=== PATIENT | female | born 1965 | race Caucasian/White ===

== ENCOUNTER 2023-11-20 09:00 | Outpatient (OUT) | payer OTHER, SELFPAY ==
--- NOTE | 2023-11-20 09:06 | ECG_ITS ---
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
--- NOTE | 2023-11-20 09:39 | P.GSHP_ITS ---
History of Present Illness History of Present Illness Chief complaint: left kidney stone Narrative: Patient presents for preadmission testing. The patient reports a history of kidney stones. She states she had a one year follow-up with Dr. Schmid and a kidney stone was found. She states she does have intermittent back pain which is not new for her. She denies any urinary complaints. She states she does have dyspnea with exertion. She also admits that she's had some congestion and a cough recently which she believes is due to her sinuses. She denies fever, wheezing, shortness of breath, or any other complaints. Review of Systems ROS Narrative REVIEW OF SYSTEMS: Negative except as stated in HPI, ten or more systems reviewed. Constitutional: No fever , chills, weakness ENT: No sore throat or epistaxis Cardiovascular: No edema, chest pain, or palpitations; Admits to dyspnea on exertion Respiratory: No shortness of breath, cough, or wheezing Musculoskeletal: No joint pain or swelling Gastrointestinal: No abdominal pain, constipation, diarrhea, or vomiting Genitourinary: No dysuria or hematuria Neurological: No numbness, tingling, weakness, or headache Psychiatric: No mood changes [facility] Medical History (Updated 11/20/23 @ 09:49 by Sanna Campuzano NP) URI (upper respiratory infection) ?J06.9 - Acute upper respiratory infection, unspecified (ICD-10) NAFLD (nonalcoholic fatty liver disease) ?K76.0 - Fatty (change of) liver, not elsewhere classified (ICD-10) Anxiety ?F41.9 - Anxiety disorder, unspecified (ICD-10) Back pain ?M54.9 - Dorsalgia, unspecified (ICD-10) Arthritis ?M19.90 - Unspecified osteoarthritis, unspecified site (ICD-10) COVID-19 ?U07.1 - COVID-19 (ICD-10) Vertigo ?R42 - Dizziness and giddiness (ICD-10) Migraine ?G43.909 - Migraine, unspecified, not intractable, without status migrainosus (ICD-10) Seizures ?R56.9 - Unspecified convulsions (ICD-10) Kidney stones ?N20.0 - Calculus of kidney (ICD-10) Gallstone ?K80.20 - Calculus of gallbladder without cholecystitis without obstruction (ICD-10) Constipation ?K59.00 - Constipation, unspecified (ICD-10) Dyspnea on exertion ?R06.09 - Other forms of dyspnea (ICD-10) Diabetes ?E11.9 - Type 2 diabetes mellitus without complications (ICD-10) Menopause ?Z78.0 - Asymptomatic menopausal state (ICD-10) Surgical History (Updated 11/20/23 @ 09:26 by Sanna Campuzano NP) Hx of tonsillectomy ?Z90.89 - Acquired absence of other organs (ICD-10) History of surgical removal of skin lesion ?Z98.890 - Other specified postprocedural states (ICD-10) ?Z87.2 - Personal history of diseases of the skin and subcutaneous tissue (ICD-10) H/O foot surgery ?Z98.890 - Other specified postprocedural states (ICD-10) Family History (Updated 11/20/23 @ 09:37 by Sanna Campuzano NP) Other Family history of cancer Family history of diabetes mellitus Family history of hypertension Heart disease Social History (Updated 11/20/23 @ 09:25 by Sanna Campuzano NP) Within the past year, how often did you have a drink containing alcohol: harish hly or less Smoking status: Never smoker Non-prescribed substance use: denies use 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 Highest level of school completed/degree received: high school graduate Meds Home Medications and Allergies Home Medications Medication Instructions Recorded Confirmed Type dulaglutide 4.5 mg/0.5 mL 4.5 mg subcut QWEEK 11/20/23 11/20/23 History subcutaneous pen injector (Trulicity) meloxicam 15 mg tablet 15 mg PO DAILY 11/20/23 11/20/23 History metformin 850 mg tablet 850 mg PO DAILY 11/20/23 11/20/23 History Allergies Allergy/AdvReac Type Severity Reaction Status Date / Time latex Allergy Rash Verified 11/20/23 09:20 Penicillins Allergy Rash Verified 11/20/23 09:20 phenobarbital Allergy Rash Verified 11/20/23 09:20 milk AdvReac Verified 11/20/23 09:20 Exam Narrative Exam Narrative: Constitutional: Awake, alert, comfortable, well-appearing, nontoxic, interactive, vital signs as charted Head: Normocephalic, atraumatic Neck: Supple, normal appearance, normal range of motion, no meningeal signs, no lymphadenopathy Respiratory: No respiratory distress, breath sounds clear Cardiovascular: Regular rate and rhythm, strong and regular heart tones Abdomen: Nontender, normal bowel sounds, soft, no CVA tenderness Musculoskeletal: Normal gait, no swelling or edema Skin: No rashes or induration, no lesions, only visible skin inspected Neuro: No neurological deficits, normal sensation Psychiatric: Oriented ?3, anxious affect Assessment and Plan Assessment and Plan (1) Kidney stones: Plan Left ESWL scheduled with Dr. Schmid 12/06/2023.
[2023-11-20 10:09] LABS: Basophils Percent Auto 0.5 % (0.2-2.0); Eosinophils Absolute Auto 0.1 10^3/uL (0.0-0.7); Eosinophils Percent Auto 1.7 % (0.9-7.0); Hematocrit 38.6 % (36.0-48.0); Hemoglobin 12.1 g/dL (12.0-16.0); Immature Granulocytes Abs Auto 0.02 10^3/uL (0.00-0.03); Immature Granulocytes Pct Auto 0.3 % (0.0-0.5); Lymphocytes Absolute Auto 3.1 10^3/uL (1.2-3.8); Lymphocytes Percent Auto 41.1 % (20.5-60.0); Mean Corpuscular HGB Conc 31.3 g/dL (29.9-35.2); Mean Corpuscular Hemoglobin 30.3 pg (26.7-34.0); Mean Corpuscular Volume 96.5 fL (81.0-99.0); Mean Platelet Volume 9.8 fL (9.5-13.5); Monocytes Absolute Auto 0.5 10^3/uL (0.3-0.8); Monocytes Percent Auto 6.1 % (1.7-12.0); Neutrophils Absolute Auto 3.8 10^3/uL (1.4-6.5); Neutrophils Percent Auto 50.3 % (43.0-75.0); Platelet Count 228 10^3/uL (150-450); Red Cell Distribution Width 13.8 % (11.0-15.0); White Blood Count 7.5 10^3/uL (4.0-11.0)
[2023-11-20 10:41] LABS: INR 0.93; Partial Thromboplastin Time 30.5 sec (22.3-36.2); Prothrombin Time 9.9 sec (9.0-11.6)
[2023-11-20 11:29] LABS: Anion Gap 8.1; BUN Creatinine Ratio 13.6; Calcium 8.6 mg/dL (8.5-10.1); Carbon Dioxide 30.6 mmol/L (21.0-32.0); Chloride 109 mmol/L (98-107); Estimated GFR (African America >60 (>=60); Estimated GFR (Non-African Ame >60 (>=60); Glucose 93 mg/dL (74-106); Potassium 3.7 mmol/L (3.5-5.1); Sodium 144 mmol/L (136-145)
[2023-11-20 15:29] LABS: SARS-CoV-2 NAA NOT DETECTED (NOT DETECTE)
== END 2023-11-20 09:01 | disposition home or self-care (01) ==
PROVIDERS: PCP Family Medicine; Visit Provider Urology
DX: Z01.810 Encounter for preprocedural cardiovascular examination (principal); Z01.812 Encounter for preprocedural laboratory examination; Z01.818 Encounter for other preprocedural examination; Z20.822 Contact with and (suspected) exposure to COVID-19
CPT/HCPCS: 36415; 80048; 85025; 85610; 85730; 87635; 87811; 93005; G0463

== ENCOUNTER 2023-12-06 07:18 | Day surgery (SDC) | payer OTHER, SELFPAY ==
[2023-11-20 09:37] VITALS: BP 122/73; PULSE 57; RESP 22; TEMP 36.2; O2SAT 96; BMI 39.8
[2023-12-06] VITALS (12 sets, daily range): BP systolic 93–127; BP diastolic 58–83; PULSE 51–72; RESP 12–18; TEMP 36.2; O2SAT 89–98; BMI 38.6
--- OUTSIDE RECORDS SUMMARY | 2023-12-06 07:20 | XMS_ITS | CCD ---
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 Name Role Phone Raulito Bullock Primary Care Physician [phone] Kayley Herrera Unavailable Unavailable RAULITO BULLOCK Attending Unavailable JOHN GONGORA Attending Unavailable RAULITO BULLOCK Attending Unavailable Raulito Bullock MD Unavailable [phone] Raulito Bullock MD Primary Care Provider Chanelle Wilson Attending Unavailable Raulito Bullock Admitting Unavailable Raulito Bullock Consulting Unavailable Raulito Bullock Attending Unavailable REFERRAL, SELF Referring Unavailable MD Raulito Bullock Consulting Unavailable Fatmata PAZ Consulting Unavailable Raulito Bullock Consulting Unavailable Raulito Bullock Consulting Unavailable Raulito Bullock Consulting Unavailable Raulito Bullock Consulting Unavailable Raulito Bullock Consulting Unavailable Raulito Bullock Consulting Unavailable Raulito Bullock Consulting Unavailable Nasir SCHMID Admitting Unavailable Nasir SCHMID Attending Unavailable Nasir SCHMID Admitting Unavailable Nasir SCHMID Attending Unavailable Alon High Attending Unavailable Nasir SCHMID Attending Unavailable Allergies Allergy Classification Reported Allergen(s) Allergy Type Date of Onset Reaction(s) Facility (11 sources) Latex; Translations: [Latex] Drug allergy 3 Unknown (qualifier value) [facility] (10 sources) Penicillins; Translations: [penicillins] Drug allergy Eruption of skin (disorder) [facility] (11 sources) PHENobarbital; Translations: [phenobarbital] Drug Allergy 3 Eruption of skin (disorder) [facility] (9 sources) powder in gloves 1 Allergy to substance rash on hands [facility] Comment on above: denied latex allergy - just powder (10 sources) Milk Products; Translations: [Milk Products] Food allergy Diarrhea (finding) [facility] (1 source) Penicillin G Drug Allergy 3 [facility] (1 source) powder in gloves; Translations: [powder in gloves] Propensity to adverse reactions (disorder) [facility] Repository Medications Current Medications Medication Drug Class(es) Dates Sig (Normalized) Sig (Original) acetaminophen 325 mg / HYDROcodone bitartrate 5 mg oral tablet (1 source) Opioid Agonist Start: 09-07-2023 End: 09-10-2023 take 1 tablet by mouth every six hours for pain [place] 325 mg-5 mg oral tablet 1 tab(s), Oral, q6hr for pain for 3 day(s), 12 tab(s), Refill(s) 0, [facility], 170.2, cm, 09/07/23 17:08:00 EST, Height/Length Dosing, 119.1, kg, 09/07/23 17:08:00 EST, Weight Dosing Start Date: 09/07/23 Stop Date: 09/10/23 Status: Ordered Percocet (8 sources) Opioid Agonist Start: 11-28-2021 Percocet 2.5/325 Oral, q6hr, Refill(s) 0 Start Date: 11/28/21 Status: Ordered busPIRone hydrochloride 10 mg oral tablet (8 sources) Start: 08-07-2019 take 1 tablet by mouth at bedtime busPIRone 10 mg Tab 10 mg = 1 tab(s), Oral, Bedtime, # 30 tab(s), Refills(s) 3, Pharmacy: [facility] Start Date: 08/07/19 Status: Ordered celecoxib 200 mg oral capsule (8 sources) Nonsteroidal Anti-inflammatory Drug Start: 05-02-2021 take 1 mg by mouth twice daily celecoxib 200 mg Cap mg cap(s), Oral, BID, Refills(s) 0 Start Date: 05/02/21 Status: Ordered cephalexin 500 mg oral capsule (1 source) Cephalosporin Antibacterial Start: 07-13-2022 End: 07-20-2022 take 1 capsule by mouth every six hours Keflex 500 mg Cap 500 mg = 1 cap(s), Oral, q6hr, X 7 day(s), # 28 cap(s), Refills(s) 0, Pharmacy: [facility] 1986, 173, cm, 07/13/22 16:57:00 EDT, Height/Length Dosing, 141, kg, 07/13/22 16:57:00 EDT, Weight Dosing Start Date: 07/13/22 Stop Date: 07/20/22 Status: Ordered 0.5 ML dulaglutide 9 MG/ML Auto-Injector [Trulicity] (1 source) GLP-1 Receptor Agonist Start: 10-30-2023 Trulicity Pen 4.5 mg/0.5 mL subcutaneous solution Refills(s) 0 Start Date: 10/30/23 Status: Ordered dulaglutide (Trulicity) 4.5 MG/0.5ML solution pen-injector (1 source) Start: 09-17-2023 End: 09-16-2024 inject 4.5 mg by subcutaneous injection every week dulaglutide (Trulicity) 4.5 MG/0.5ML solution pen-injector Indications: Morbid obesity (CMS/HCC) , Type 2 diabetes mellitus with hyperglycemia, without long-term current use of insulin (CMS/HCC) Inject 4.5 mg under the skin 1 (one) time per week 4 each 09/17/2023 09/16/2024 Active meloxicam 15 mg oral tablet (9 sources) Nonsteroidal Anti-inflammatory Drug Start: 07-10-2022 End: 08-28-2024 take 1 tablet by mouth once daily meloxicam (Mobic) 15 MG tablet Indications: DDD (degenerative disc disease), lumbar , Other chronic pain , Osteoarthritis of knee, unspecified laterality, unspecified osteoarthritis type , Acute bilateral thoracic back pain Take 1 tablet (15 mg) by mouth 1 (one) time each day at the same time. 90 tablet 1 08/29/2023 08/28/2024 Active metFORMIN hydrochloride 850 mg oral tablet (9 sources) Biguanide Start: 07-10-2022 End: 05-30-2024 take 1 tablet by mouth at mealtime metFORMIN (Glucophage) 850 MG tablet Indications: Type 2 diabetes mellitus with hyperglycemia, without long-term current use of insulin (CMS/HCC) Take 1 tablet (850 mg) by mouth in the morning. Take with meals. 30 tablet 11 05/31/2023 05/30/2024 Active naproxen 500 mg oral tablet (8 sources) Nonsteroidal Anti-inflammatory Drug Start: 11-22-2021 take 1 tablet by mouth twice daily as needed for pain Naprosyn 500 mg Tab 500 mg = 1 tab(s), Oral, BID, PRN for pain, # 20 tab(s), Refills(s) 0, Pharmacy: [facility] 1986, 173, cm, 11/22/21 15:42:00 EST, Height/Length Dosing, 135, kg, 11/22/21 15:42:00 EST, Weight Dosing Start Date: 11/22/21 Status: Ordered ONETOUCH ULTRA BLUE TEST STP (8 sources) Start: 07-10-2022 ONETOUCH ULTRA BLUE TEST STP ONETOUCH ULTRA BLUE TEST STP Start Date: 07/10/22 Status: Ordered pantoprazole 40 mg delayed release oral tablet (8 sources) Proton Pump Inhibitor Start: 05-02-2021 take 1 mg by mouth once daily Pantoprazole [address] Tab mg tab(s), Oral, Daily, Refills(s) 0 Start Date: 05/02/21 Status: Ordered Sudafed (8 sources) alpha-Adrenergic Agonist Start: 05-29-2017 take 1 tablet by mouth once daily as needed Sudafed 1 tab, Oral, Daily, PRN Allergy symptoms, Refills(s) 0, Allergy symptoms Start Date: 05/29/17 Status: Ordered tamsulosin hydrochloride 0.4 mg oral capsule (16 sources) alpha-Adrenergic Irais Start: 11-22-2021 take 1 capsule by mouth once daily tamsulosin 0.4 mg Cap 0.4 mg = 1 cap(s), Oral, Daily, # 30 cap(s), Refills(s) 1, Pharmacy: [facility] 1986, 173, cm, 11/28/21 17:00:00 EST, Height/Length Dosing, 135, kg, 11/28/21 17:00:00 EST, Weight Dosing Start Date: 11/28/21 Status: Ordered Zofran ODT 4 mg Tab-Dis (14 sources) Start: 07-13-2022 take 1 tablet by mouth every eight hours as needed for nausea Zofran ODT 4 mg Tab-Dis 4 mg = 1 tab(s), Oral, q8hr, PRN Nausea/Vomiting, # 12 tab(s), Refills(s) 0, Pharmacy: [facility] 1986, 173, cm, 07/13/22 16:57:00 EDT, Height/Length Dosing, 141, kg, 07/13/22 16:57:00 EDT, Weight Dosing Start Date: 07/13/22 Status: Ordered Start: 11-22-2021 take 1 tablet by kenton th three times daily Zofran ODT 4 mg Tab-Dis 4 mg = 1 tab(s), Oral, TID, # 15 tab(s), Refills(s) 0, Pharmacy: [facility], 173, cm, 11/22/21 15:42:00 EST, Height/Length Dosing, 135, kg, 11/22/21 15:42:00 EST, Weight Dosing Start Date: 11/22/21 Status: Ordered Problems Active Problems Problem Classification Problem Date Documented Date Episodic/Chronic Diabetes mellitus with complications (1 source) Type 2 diabetes mellitus; Translations: [Type 2 diabetes mellitus with hyperglycemia] Onset: 03-27-2023 03-27-2023 Chronic Diabetes mellitus without complication (9 sources) Latent autoimmune diabetes mellitus in adult; Translations: [Other specified diabetes mellitus without complications] Onset: 06-28-2023 07-10-2022 Chronic E Codes: Fall (1 source) Fall (on)(from) sidewalk curb, sequela; Translations: [Accidental fall on or from sidewalk curb] Onset: 09-07-2023 09-07-2023 Episodic Headache; including migraine (10 sources) Migraine; Translations: [Migraine, unspecified, not intractable, without status migrainosus] Onset: 06-28-2023 03-06-2017 Chronic Nausea and vomiting (1 source) Nausea and vomiting; Translations: [Nausea with vomiting, unspecified] Onset: 07-13-2022 Episodic Osteoarthritis (11 sources) Arthritis; Translations: [Primary gonarthrosis, bilateral] Onset: 03-19-2019 11-28-2021 Chronic Other bone disease and musculoskeletal deformities (1 source) Posterior calcaneal exostosis; Translations: [Juvenile osteochondrosis of tarsus, right ankle] Onset: 06-28-2023 06-28-2023 Chronic Other bone disease and musculoskeletal deformities (9 sources) Posterior calcaneal exostosis 05-29-2017 Episodic Other ear and sense organ disorders (9 sources) Deafness symptom 11-28-2021 Chronic Other liver diseases (10 sources) Non-alcoholic fatty liver; Translations: [Fatty (change of) liver, not elsewhere classified] Onset: 06-28-2023 07-02-2019 Chronic Other nervous system disorders (1 source) Chronic pain; Translations: [Other chronic pain] Onset: 03-27-2023 03-27-2023 Chronic Other non-traumatic joint disorders (1 source) Pain in right knee; Translations: [Pain in joint, lower leg] Onset: 09-07-2023 09-07-2023 Episodic Other nutritional; endocrine; and metabolic disorders (10 sources) Body mass index 40+ - severely obese; Translations: [Body mass index (BMI) 45.0-49.9, adult] Onset: 06-28-2023 05-04-2021 Chronic Other nutritional; endocrine; and metabolic disorders (10 sources) Obesity; Translations: [Obesity, unspecified] Onset: 06-28-2023 07-02-2019 Chronic Other nutritional; endocrine; and metabolic disorders (1 source) Morbid obesity; Translations: [Morbid (severe) obesity due to excess calories] Onset: 03-27-2023 03-27-2023 Chronic Spondylosis; intervertebral disc disorders; other back problems (1 source) Degeneration of lumbar intervertebral disc; Translations: [Other intervertebral disc degeneration, lumbar region] Onset: 03-27-2023 03-27-2023 Chronic Superficial injury; contusion (1 source) Contusion of knee; Translations: [Contusion of unspecified knee, initial encounter] Onset: 09-07-2023 Episodic Thyroid disorders (1 source) Acquired hypothyroidism; Translations: [Hypothyroidism, unspecified] Onset: 03-27-2023 03-27-2023 Chronic Unclassified (9 sources) Patient encounter status 03-05-2019 Urinary tract infections (1 source) Urinary tract infectious disease; Translations: [Urinary tract infection, site not specified] Onset: 07-13-2022 Episodic Past or Other Problems Problem Classification Problem Date Documented Da te Episodic/Chronic Abdominal pain (20 sources) Abdominal pain; Translations: [Epigastric pain] Onset: 10-06-2022 07-26-2021 Episodic Biliary tract disease (11 sources) Biliary calculus; Translations: [Chronic cholecystitis] Onset: 03-27-2023 05-03-2021 Episodic Calculus of urinary tract (20 sources) Kidney stone; Translations: [Ureteric stone] Onset: 07-10-2022 11-28-2021 Episodic Conditions associated with dizziness or vertigo (10 sources) Vertigo; Translations: [Dizziness and giddiness] Onset: 06-28-2023 05-29-2017 Episodic Other disorders of stomach and duodenum (10 sources) Intestinal metaplasia of gastric mucosa; Translations: [Intestinal metaplasia of gastric mucosa] Onset: 06-28-2023 07-02-2019 Episodic Other gastrointestinal disorders (10 sources) H/O: gallstones; Translations: [Personal history of other diseases of the digestive system] Onset: 06-28-2023 05-02-2021 Episodic Other injuries and conditions due to external causes (10 sources) Foreign body of foot; Translations: [Superficial foreign body, right foot, initial encounter] Onset: 06-28-2023 01-31-2018 Episodic Other lower respiratory disease (10 sources) Dyspnea on exertion; Translations: [Shortness of breath] Onset: 06-28-2023 09-02-2018 Episodic Other nervous system disorders (2 sources) Abnormal gait; Translations: [Unspecified abnormalities of gait and mobility] Onset: 08-15-2017 03-27-2023 Episodic Other non-traumatic joint disorders (10 sources) Hand joint pain; Translations: [Pain in joints of unspecified hand] Onset: 06-28-2023 03-05-2019 Episodic Other screening for suspected conditions (not mental disorders or infectious disease) (10 sources) Breast neoplasm screening status; Translations: [Patient encounter status] Onset: 06-28-2023 03-05-2019 Episodic Residual codes; unclassified (10 sources) Menopause present; Translations: [Asymptomatic menopausal state] Onset: 06-28-2023 05-29-2017 Episodic Results Test Name Value Interpretation Reference Range Facility ECG 12-Leadon 11-21-2023 ECG 12-Lead [id number] #1.00TIFF Normal [facility] Lab Reportson 11-21-2023 Lab Reports [id number] #1.00TIFF Normal [facility] Lab Reports [id number] #1.00TIFF Normal [facility] Lab Reports [id number] #1.00TIFF Normal [facility] ALL CBC WITH AUTO DIFFon BASOPHILS ABSOLUTE AUTO 0.0 [facility] Basophils/100 WBC (Bld) 0.5 % 0.2 - 2.0 % [facility] Eosinophils/100 WBC (Bld) 1.7 % 0.9 - 7.0 % [facility] Erythrocyte distribution width (RBC) [Ratio] 13.8 % 11.0 - 15.0 % [facility] Hematocrit (Bld) [Volume fraction] 38.6 % 36.0 - 48.0 % [facility] Hemoglobin (Bld) [Mass/Vol] 12.1 g/dL 12.0 - 16.0 g/dL [facility] IMMATURE GRANULOCYTES ABS AUTO 0.02 [facility] Immature granulocytes/100 WBC (Bld) 0.3 % 0.0 - 0.5 % [facility] Interpretation and review of laboratory results Abnormal [facility] LYMPHOCYTES ABSOLUTE AUTO 3.1 [facility] Lymphocytes/100 WBC (Bld) 41.1 % 20.5 - 60.0 % [facility] MCH (RBC) [Entitic mass] 30.3 pg 26.7 - 34.0 pg [facility] MCHC (RBC) [Mass/Vol] 31.3 g/dL 29.9 - 35.2 g/dL [facility] MCV (RBC) [Entitic vol] 96.5 fL 81.0 - 99.0 fL [facility] MONOCYTES ABSOLUTE AUTO 0.5 [facility] Monocytes/100 WBC (Bld) 6.1 % 1.7 - 12.0 % [facility] NEUTROPHILS ABSOLUTE AUTO 3.8 [facility] Neutrophils/100 WBC (Bld) 50.3 % 43.0 - 75.0 % [facility] Platelet mean volume (Bld) [Entitic vol] 9.8 fL 9.5 - 13.5 fL [facility] TBH EO # 0.1 [facility] TBH PLT 228 [facility] RBC 4.00 Low [facility] WBC 7.5 [facility] Consent for Procedure/Surger yon 11-14-2023 Consent for Procedure/Surgery [id number] #1.00TIFF [facility] Screenson 10-31-2023 Screens [id number]#1.00TIFF [facility] Ambulatory Visit Summaryon 0 10-30-2023 Ambulatory Visit Summary KATHY BAKER :1965 Visit Date:10/30/2023 Ambulatory Visit Instructions Your Diagnosis Kidney stone Your Care Team Attending Physician - YULI Wilson APRN, Chanelle Marroquin Primary Care Physician - Raulito Bullock MD This Is Your Medications List Contact prescribing physician if questions or concerns Misc Prescription (ONETOUCH DELICA PLUS 30G MIS) Misc Prescription (ONETOUCH ULTRA BLUE TEST STP) dulaglutide (Trulicity Pen 4.5 mg/0.5 mL subcutaneous solution) meloxicam (meloxicam 15 mg oral tablet) metformin (metformin 850 mg oral tablet) Procedures Performed Bursectomy (02/07/2018), Removal of retrocalcaneal exostosis right foot (06/07/2017), tumor removal of left ear. Discharge Vitals Heart Rate (Peripheral) 73 Respiratory Rate 16 Blood Pressure 128/83 Height 173 cm Height 68 in Weight 141 kg Weight 310.2 lb BMI 47.11 Medications What How Much When Instructions Unchanged dulaglutide (Trulicity Pen 4.5 mg/ 0.5 mL subcutaneous solution) Contact prescribing physician if questions or concerns Unchanged meloxicam (meloxicam 15 mg oral tablet) Contact prescribing physician if questions or concerns Unchanged metformin (metformin 850 mg oral tablet) Contact prescribing physician if questions or concerns Unchanged Misc Prescription (ONETOUCH DELICA PLUS 30G MIS) 0 Contact prescribing physician if questions or concerns Unchanged Misc Prescription (ONETOUCH ULTRA BLUE TEST STP) 0 Contact prescribing physician if questions or concerns Allergies Milk Products (Diarrhea) PHENobarbital Sodium (Rash) penicillins (Rash) powder in gloves (rash on hands) Latex (Unknown) Problems Ongoing - Any problem that you are currently receiving treatment for. Abdominal pain Abdominal pain, epigastric Bilateral flank pain BMI 45.0-49.9, adult Cholelithiasis Diabetes 1.5, managed as type 2 Encounter for screening mammogram for breast cancer Hx of gallstones Intestinal metaplasia of gastric mucosa Kidney stone NAFLD (nonalcoholic fatty liver disease) Obesity Pain in joint of left hand Upper abdominal pain Ureteral stone Visit for screening Historical - Any problem that you are no longer receiving treatment for. Arthritis Deafness symptom Kidney stone Patient Survey You may receive a survey via text or e-mail asking about your office visit. Please share your experience with us by completing your survey. We appreciate your feedback and thank you for choosing us for your care. Education Materials Dietary Guidelines to Help Prevent Kidney Stones Kidney stones are deposits of minerals and salts that form inside your kidneys. Your risk of developing kidney stones may be greater depending on your diet, your lifestyle, the medicines you take, and whether you have certain medical conditions. Most people can lower their risks of developing kidney stones by following these dietary guidelines. Your dietitian may give you more specific instructions depending on your overall health and the type of kidney stones you tend to develop. What are tips for following this plan? Reading food labels ? Choose foods with no salt added or low-salt labels. Limit your salt (sodium) intake to less than 1,500 mg a day. ? Choose foods with calcium for each meal and snack. Try to eat about 300 mg of calcium at each meal. Foods that contain 200?500 mg of calcium a serving include: ? 8 oz (237 mL) of milk, calcium-fortifiednon -dairy milk, and calcium-fortifiedfru it juice. Calcium-fortified means that calcium has been added to these drinks. ? 8 oz (237 mL) of kefir, yogurt, and soy yogurt. ? 4 oz (114 g) of tofu. ? 1 oz (28 g) of cheese. ? 1 cup (150 g) of dried figs. ? 1 cup (91 g) of cooked broccoli. ? One 3 oz (85 g) can of sardines or mackerel. Most people need 1,000?1,500 mg of calcium a day. Talk to your dietitian about how much calcium is recommended for you. Shopping ? Buy plenty of fresh fruits and vegetables. Most people do not need to avoid fruits and vegetables, even if these foods contain nutrients that may contribute to kidney stones. ? When shopping for convenience foods, choose: ? Whole pieces of fruit. ? Pre-made salads with dressing on the side. ? Low-fat fruit and yogurt smoothies. ? Avoid buying frozen meals or prepared deli foods. These can be high in sodium. ? Look for foods with live cultures, such as yogurt and kefir. ? Choose high-fiber grains, such as whole-wheat breads, oat bran, and wheat cereals. Cooking ? Do not add salt to food when cooking. Place a salt shaker on the table and allow each person to add their own salt to taste. ? Use vegetable protein, such as beans, textured vegetable protein (TVP), or tofu, instead of meat in pasta, casseroles, and soups. Meal planning ? Eat less salt, if told by your dietitian. To do this: ? Avoid eating (more content not included)... Normal [facility] Patient Educationon 10-30-19 Patient Education Nephrology Dietary Guidelines to Help Prevent Kidney Stones Kidney stones are deposits of minerals and salts that form inside your kidneys. Your risk of developing kidney stones may be greater depending on your diet, your lifestyle, the medicines you take, and whether you have certain medical conditions. Most people can lower their risks of developing kidney stones by following these dietary guidelines. Your dietitian may give you more specific instructions depending on your overall health and the type of kidney stones you tend to develop. What are tips for following this plan? Reading food labels ? Choose foods with no salt added or low-salt labels. Limit your salt (sodium) intake to less than 1,500 mg a day. ? Choose foods with calcium for each meal and snack. Try to eat about 300 mg of calcium at each meal. Foods that contain 200?500 mg of calcium a serving include: ? 8 oz (237 mL) of milk, calcium-fortifiednon -dairy milk, and calcium-fortifiedfru it juice. Calcium-fortified means that calcium has been added to these drinks. ? 8 oz (237 mL) of kefir, yogurt, and soy yogurt. ? 4 oz (114 g) of tofu. ? 1 oz (28 g) of cheese. ? 1 cup (150 g) of dried figs. ? 1 cup (91 g) of cooked broccoli. ? One 3 oz (85 g) can of sardines or mackerel. Most people need 1,000?1,500 mg of calcium a day. Talk to your dietitian about how much calcium is recommended for you. Shopping ? Buy plenty of fresh fruits and vegetables. Most people do not need to avoid fruits and vegetables, even if these foods contain nutrients that may contribute to kidney stones. ? When shopping for convenience foods, choose: ? Whole pieces of fruit. ? Pre-made salads with dressing on the side. ? Low-fat fruit and yogurt smoothies. ? Avoid buying frozen meals or prepared deli foods. These can be high in sodium. ? Look for foods with live cultures, such as yogurt and kefir. ? Choose high-fiber grains, such as whole-wheat breads, oat bran, and wheat cereals. Cooking ? Do not add salt to food when cooking. Place a salt shaker on the table and allow each person to add their own salt to taste. ? Use vegetable protein, such as beans, textured vegetable protein (TVP), or tofu, instead of meat in pasta, casseroles, and soups. Meal planning ? Eat less salt, if told by your dietitian. To do this: ? Avoid eating processed or pre-made food. ? Avoid eating fast food. ? Eat less animal protein, including cheese, meat, poultry, or fish, if told by your dietitian. To do this: ? Limit the number of times you have meat, poultry, fish, or cheese each week. Eat a diet free of meat at least 2 days a week. ? Eat only one serving each day of meat, poultry, fish, or seafood. ? When you prepare animal proteins, cut pieces into small portion sizes. For most meat and fish, one serving is about the size of the palm of your hand. ? Eat at least five servings of fresh fruits and vegetables each day. To do this: ? Keep fruits and vegetables on hand for snacks. ? Eat one piece of fruit or a handful of berries with breakfast. ? Have a salad and fruit at lunch. ? Have two kinds of vegetables at dinner. ? You may be told to limit foods that are high in a substance called oxalate. These include: ? Spinach (cooked), rhubarb, beets, sweet potatoes, and Greek chard. ? Peanuts. ? Potato chips, [place] fries, and baked potatoes with skin on. ? Nuts and nut products. ? Chocolate. ? If you regularly take a diuretic medicine, make sure to eat at least 1 or 2 servings of fruits or vegetables that are high in potassium each day. These include: ? Avocado. ? Banana. ? [place], prune, carrot, or tomato juice. ? Baked potato. ? Cabbage. ? Beans and split peas. Lifestyle ? Drink enough fluid to keep your urine pale yellow. This is the most important thing you can do. Spread your fluid intake throughout the day. ? If you drink alcohol: ? Limit how much you have to: ? 0?1 drink a day for women who are not . ? 0?2 drinks a day for men. ? Know how much alcohol is in your drink. In the [place] one drink equals one 12 oz bottle of beer (355 mL), one 5 oz glass of wine (148 mL), or one 1? oz glass of hard liquor (44 mL). ? Lose weight if told by your health care provider. Work with your dietitian to find an eating plan and weight loss strategies that work best for you. General information ? Talk to your health care provider and dietitian about taking daily supplements. Depending on your health and the cause of your kidney stones, you may be told: ? Do not take high-dose supplements of vitamin C (1,000 mg a day or more). ? To take a calcium supplement. ? To take a daily probiotic supplement. ? To take other supplements such as magnesium, fish oil, or vitamin B6. ? Take yzxm-umv-spzcoud and prescription medicines only as told by your health care provider. These include supplements. What foods sh (more content not included)... Normal [facility] Urology Office/Clinic Noteon 10-30-2023 Urology Office/Clinic Note Chief Complaint 1yr KUB & Metabolic Work Up HPI Staff PRW pt 1yr KUB & Metabolic Work Up DX: Kidney Stone *No Urology Meds KUB 07/11/23 Metabolic Work Up 07/11/23Pt states she voided prior to coming to appt, does not think she can give a sample at this time. Back pain started last night, she is unsure if it is her kidney. Denies pain/burning and visible blood in urine. States she drinks a lot of cranberry juice & water. Occasional frequency w/fluid intake. Denies all other urinary complaints. No concerns at this time. History of Present Illness I have reviewed and verified the staff HPI to be accurate for this encounter. Review of Systems PHQ Score Initial Depression Screen Score: 0 SCORE Physical Exam Vitals & Measurements HR: 73(Peripheral) RR: 16 BP: 128/83 HT: 68 in HT: 173 cm WT: 141 kg WT: 310.2 lb BMI: 47.11 General: Pleasant, obese female in no acute distress. Genitourinary: Flank Pain: none Bladder: nonpalpable. Assessment/Plan 1. Kidney stone (N20.0: Calculus of kidney) UA today w/o blood or infection. Denies episode of gross hematuria, urinary infection, or stone episode since last OV. KUB 07/08/22 - 5 mm stone overlying left renal shadow KUB 07/30/23 - 7 mm stone left lower pole Metabolic workup 07/11/23 - low output, 850 cc. Discussed KUB findings w/ pt. Discussed continued monitoring vs procedure to break up stone. Pt states the PRW previously spoke w/ her about ESWL. Discussed primary abnormality contributing to stone formation is dehydration. Pt states that she drinks about 3 bottles of water a day, a cup of coffee, possibly a vanilla coke, a lot of cranberry juice. Advised pt she should greatly increase fluid intake w/ water, flavored schmid, sugar free lemonade, 1/4 cup of lemon juice diluted in water throughout the day, clear pops. Avoid coffee, tea, sugary juices, dark sodas. -Will schedule ESWL. The procedure risks, benefits, details and treatment alternatives have been discussed with the patient. These include blood in the urine, infection, bleeding around the kidney, kidney bruising, inability to break up the stone, need for blood transfusion, blockage from stone fragments, and need for additional procedures, among others. Full informed consent has been obtained. Will order General anesthesia. Follow-up No qualifying data available Patient Education Dietary Guidelines to Help Prevent Kidney Stones Kidney Stones, Gayq-jq-Xuyp Problem List/Past Medical History Ongoing Abdominal pain Abdominal pain, epigastric Bilateral flank pain BMI 45.0-49.9, adult Cholelithiasis Diabetes 1.5, managed as type 2 Encounter for screening mammogram for breast cancer Hx of gallstones Intestinal metaplasia of gastric mucosa Kidney stone NAFLD (nonalcoholic fatty liver disease) Obesity Pain in joint of left hand Upper abdominal pain Ureteral stone Visit for screening Historical Arthritis Deafness symptom Kidney stone Procedure/Surgical History Bursectomy (02/07/2018), Removal of retrocalcaneal exostosis right foot (06/07/2017), tumor removal of left ear. Medications meloxicam 15 mg oral tablet metformin 850 mg oral tablet ONETOUCH DELICA PLUS 30G MIS, 0 ONETOUCH ULTRA BLUE TEST STP, 0 Trulicity Pen 4.5 mg/0.5 mL subcutaneous solution Allergies Milk Products (Diarrhea) PHENobarbital Sodium (Rash) penicillins (Rash) powder in gloves (rash on hands) Latex (Unknown) Social History Alcohol - Low Risk, 09/15/2019 1-2 times per month, 01/28/2014 Sexual Sexually active: Yes., 03/28/2019 Substance Abuse - Denies Substance Abuse, 01/28/2014 Tobacco - Denies Tobacco Use, 09/15/2019 Never (less than 100 in lifetime) Tobacco Use:. Never Smokeless Tobacco Use:. Household tobacco concerns: No. Yes, 10/30/2023 Family History Cardiac arrhythmia: Father. Diabetes mellitus type 1: Child. Diabetes mellitus type 2: Mother and Father. Metastatic cancer: Aunt. Stroke: Father. Immunizations Vaccine Date Status Comments hepatitis A adult vaccine 10/20/2022 Recorded zoster vaccine, inactivated 04/17/2022 Recorded hepatitis B adult vaccine 02/06/2022 Recorded zoster vaccine, inactivated 12/30/2021 Recorded hepatitis B adult vaccine 12/30/2021 Recorded hepatitis A adult vaccine 12/30/2021 Recorded SARSCoV2 mRNA(tozinamer-john- sucros) vac 12/30/2021 Recorded influenza virus vaccine, inactivated - Not Given Temporary contraindication - reschedule SARS-CoV-2 (COVID-19) mRNA BNT-162b2 vax 02/10/2021 Recorded SARS-CoV-2 (COVID-19) mRNA BNT-162b2 vax 01/19/2021 Recorded SARS-CoV-2 (COVID-19) mRNA BNT-162b2 vax 2020 Recorded diphtheria/pertussis , acel/tetanus adult 06/20/2020 Given influenza virus vaccine, inactivated 07/03/2018 Recorded Lab Results Ambulatory Point of Care Results Bilirubin Urine Dipstick: Negative (10/30/23 13:16:00) Blood Urine Dipstick: Trace-intact (10/30/23 13:16:00) Glucose Urine Dipstick: (more content not included)... Normal [facility] Comment on above: Result Comment: Elec tronically Signed By: YULI Wilson APRN, Chanelle Marroquin\.br\Date and Time Signed: 10/30/23 14:03 EST Consent for Treatmenton Consent for Treatment [id number] #1.00TIFF [facility] Discharge Instructionson Discharge Instructions [id number] 9#1.00TIFF [facility] ED Clinical Summaryon 2022 ED Clinical Summary [place] [id number] ED Clinical Summary Person Information Name: KATHY BAKER/[facility] Age: 58 Years : 1965 Sex: Female Language: [place] PCP: Edinson WOODRUFF, Raulito Berman Marital Status: Phone: [phone] Visit Id: Visit Reason: Knee pain-swelling; KNEE PAIN Speciality: Acuity: 4 Enc Type: Emergency Med Service: Emergency Arrival: 09/07/2023 16:54:21 Discharge: 09/07/2023 18:51:15 LOS: 000 01:57 Checkin: 09/07/2023 16:54:21 Checkout: 09/07/2023 18:51:15 Dispo Type: Home (Routine DC) EVENTS: Event Name Event Status Request Date/Time Start Date/Time Complete Date/Time Arrive Complete 09/07/2023 16:54:21 09/07/2023 16:54:21 09/07/2023 16:54:21 Document Home Meds Request 09/07/2023 16:54:21 Triage Complete 09/07/2023 16:54:21 09/07/2023 17:08:30 09/07/2023 17:08:30 X-Ray Complete 09/07/2023 17:16:26 09/07/2023 17:30:01 09/07/2023 17:57:13 Bed Assign Complete 09/07/2023 17:20:39 09/07/2023 17:20:39 09/07/2023 17:20:39 Dr Exam Complete 09/07/2023 17:20:39 09/07/2023 17:24:24 09/07/2023 17:24:24 RN Exam Complete 09/07/2023 17:20:39 09/07/2023 18:50:29 09/07/2023 18:50:29 Registration Complete 09/07/2023 17:24:24 09/07/2023 17:53:25 09/07/2023 17:53:25 Dr Exam Complete 09/07/2023 17:41:52 09/07/2023 17:41:52 09/07/2023 17:41:52 Reg Complete Request 09/07/2023 17:53:25 Reg Bed Request Complete 09/07/2023 17:53:25 09/07/2023 17:53:25 09/07/2023 17:53:25 Wet Read Request 09/07/2023 17:57:13 Discharge Complete 09/07/2023 18:21:41 09/07/2023 18:51:21 09/07/2023 18:51:21 Transfer Complete 09/07/2023 18:51:21 09/07/2023 18:51:21 09/07/2023 18:51:21 ADDRESS: [address] [place] [phone] PHYS DOC NOTES: MEDICAL INFORMATION: Prescriptions Given: New Medications [facility], [address] [place], [place] [id number], [phone] acetaminophen-hydroc odone (Argonia 325 mg-5 mg oral tablet) 1 Tablets By Mouth every 6 hours as needed for pain for 3 Days. Refills: 0. Medications to Continue with No Changes Other Medications acetaminophen-oxycod one (Percocet 2.5/325) By Mouth every 6 hours. busPIRone (busPIRone 10 mg Tab) 1 Tablets By Mouth at bedtime. Refills: 3. celecoxib (celecoxib 200 mg Cap) By Mouth 2 times a day. meloxicam (meloxicam 15 mg oral tablet) metformin (metformin 850 mg oral tablet) Misc Prescription (ONETOUCH DELICA PLUS 30G MIS) 0. Misc Prescription (ONETOUCH ULTRA BLUE TEST STP) 0. naproxen (Naprosyn 500 mg Tab) 1 Tablets By Mouth 2 times a day as needed for pain. Refills: 0. ondansetron (Zofran ODT 4 mg Tab-Dis) 1 Tablets By Mouth 3 times a day. Refills: 0. ondansetron (Zofran ODT 4 mg Tab-Dis) 1 Tablets By Mouth every 8 hours as needed Nausea/Vomiting. Refills: 0. pantoprazole (Pantoprazole [address] Tab) By Mouth every day. pseudoephedrine (Sudafed) 1 tab By Mouth every day as needed Allergy symptoms. tamsulosin (Flomax 0.4 mg Cap) 1 Capsules By Mouth every day. Refills: 0. tamsulosin (tamsulosin 0.4 mg Cap) 1 Capsules By Mouth every day. Refills: 1. PATIENT EDUCATION INFORMATION: Instructions: Contusion Follow up: With: Address: When: [place] [address] Business (1) In 3 days 09/10/2023 DIAGNOSIS: Knee contusion Normal [facility] ED Note-Physicianon 09-07-20 ED Note-Physician Basic Information Time Seen: Sammy García PA-C 09/07/2023 17:24 Chief Complaint Pt reports she fell 6 days ago, falling on the sidewalk. pt reporting persistent pain in right knee since. bruising noted to knee with mild swelling. ice and tylenol not helping. History of Present Illness 58-year-old female comes into the ED for evaluation of right knee pain. The patient had a fall a week ago, landing on her right knee. She been using qpcu-jfn-tsiimjn medications and icing the area but continues to have pain. No acute weakness. No paresthesias. She is able to bear weight. Review of Systems A 10 point review of systems is negative except as noted above. Medical and Surgical History: Reviewed and noted Social history: Lives at home Tobacco: Denies Physical Exam Vitals & Measurements T: 36.5 ?C(Oral) HR: 79(Peripheral) RR: 18 BP: 136/83 SpO2: 97% HT: 170.18 cm WT: 119.1 kg BMI: 41.12 Nurses notes and vital signs reviewed and patient is not hypoxic. General: The patient appears well, resting comfortably. Skin: Warm, dry. Head: Atraumatic. Neck: No JVD. Eye: Normal conjunctiva. Ears, Nose, Mouth, and Throat: Moist mucous membranes. Cardiovascular: Strong distal pulses. Chest wall: Respiratory: Respirations are nonlabored. Back: Normal range of motion. Musculoskeletal: Tenderness of the patella surface of the right knee with healing ecchymosis. No bony instability. Good range of motion of flexion extension. No calf tenderness. Gastrointestinal: Urological: Neurological: Awake and alert. No focal deficits. Follows commands. Psychiatric: Cooperative. Medical Decision Making X-rays show no evidence of fracture or dislocation. The diagnostic limitation of x-rays were discussed. It was explained that follow-up imaging may be necessary, and PCP follow-up was given. Patient is provided with pain medications. Patient was encouraged to return to the ED if symptoms worsen or change. Assessment/Plan Knee contusion (S80.00XA: Contusion of unspecified knee, initial encounter) Ordered: acetaminophen-hydroc odone, 1 tab(s), Oral, q6hr for pain for 3 day(s), 12 tab(s), Refill(s) 0, [facility], 170.2, cm, 09/07/23 17:08:00 EST, Height/Length Dosing, 119.1, kg, 09/07/23 17:08:00 EST, Weight Dosing Disposition Plan Patient Discharge Condition Disposition: Discharged home Condition: Improved and stable Counseled: Patient and/or family were counseled to workup, results, treatment plan and follow-up recommendations Discharge Prescription List Prescriptions Argonia 325 mg-5 mg oral tablet, 1 tab(s), Oral, q6hr, PRN Follow-up With When Contact Information Raulito Bullock In 3 days 09/10/[address] [address] Business (1) Additional Instructions: Patient Education Contusion Attestation Patient seen and evaluated by the physician butcher assistant. Attending physician was present in the emergency department and supervised care. This visit was performed by both the physician and an APC. I performed all aspects of the MDM as documented. This report was transcribed using voice recognition software. Every effort was made to ensure accuracy, however, inadvertently computerized monotype machinist mistakes may be present. Appropriate healthcare PPE was used in evaluating this patient. The patient was placed in a mask. The healthcare provider was wearing mask, gloves, and utilizing proper hand hygiene. All equipment was properly cleansed. Problem List/Past Medical History Ongoing Abdominal pain Abdominal pain, epigastric Bilateral flank pain BMI 45.0-49.9, adult Cholelithiasis Diabetes 1.5, managed as type 2 Encounter for screening mammogram for breast cancer Hx of gallstones Intestinal metaplasia of gastric mucosa Kidney stone NAFLD (nonalcoholic fatty liver disease) Obesity Pain in joint of left hand Upper abdominal pain Ureteral stone Visit for screening Historical Arthritis Deafness symptom Kidney stone Procedure/Surgical History Bursectomy (02/07/2018), Removal of retrocalcaneal exostosis right foot (06/07/2017), tumor removal of left ear. Medications Inpatient No active inpatient medications Home busPIRone 10 mg Tab, 10 mg= 1 tab(s), Oral, Bedtime, 3 refills, Not taking celecoxib 200 mg Cap, Oral, BID, Not taking Flomax 0.4 mg Cap, 0.4 mg= 1 cap(s), Oral, Daily, Not taking meloxicam 15 mg oral tablet metformin 850 mg oral tablet Naprosyn 500 mg Tab, 500 mg= 1 tab(s), Oral, BID, PRN, Not taking ONETOUCH DELICA PLUS 30G MIS, 0 ONETOUCH ULTRA BLUE TEST STP, [address] Tab, Oral, Daily, Not taking Percocet 2.5/325, Oral, q6hr, Not taking Sudafed, 1 tab, Oral, Daily, PRN, Not taking tamsulosin 0.4 mg Cap, 0.4 mg= 1 cap(s), Oral, Daily, 1 refills, Not taking Zofran ODT 4 mg Tab-Dis, 4 mg= 1 tab(s), Oral, TID, Not taking Zofran ODT 4 mg Tab-Dis, 4 mg= 1 tab(s), Oral, q8hr, PRN Allergies Milk Products (Di (more content not included)... Normal [facility] Comment on above: Result Comment: Elec tronically Signed By: Sammy García PA-C\.br\Date and Time Signed: 09/07/23 18:22 EST\.br\Electronically Co-Signed By: Alon High DO\.br\Date and Time Co-Signed: 09/07/23 19:29 EST ED Patient Education Noteon 09-07-2023 ED Patient Education Note Orthopedics Contusion A contusion is a deep bruise. Contusions are the result of a blunt injury to tissues and muscle fibers under the skin. The injury causes bleeding under the skin. The skin overlying the contusion may turn blue, purple, or yellow. Minor injuries will give you a painless contusion, but more severe injuries cause contusions that may stay painful and swollen for a few weeks. Follow these instructions at home: Pay attention to any changes in your symptoms. Let your health care provider know about them. Take these actions to relieve your pain. Managing pain, stiffness, and swelling ? Use resting, icing, applying pressure (compression), and raising (elevating) the injured area. This is often called the RICE strategy. ? Rest the injured area. Return to your normal activities as told by your health care provider. Ask your health care provider what activities are safe for you. ? If directed, put ice on the injured area: ? Put ice in a plastic bag. ? Place a towel between your skin and the bag. ? Leave the ice on for 20 minutes, 2?3 times per day. ? If directed, apply light compression to the injured area using an elastic bandage. Make sure the bandage is not wrapped too tightly. Remove and reapply the bandage as directed by your health care provider. ? If possible, raise (elevate) the injured area above the level of your heart while you are sitting or lying down. General instructions ? Take cfmt-iih-gpqqjca and prescription medicines only as told by your health care provider. ? Keep all follow-up visits as told by your health care provider. This is important. Contact a health care provider if: ? Your symptoms do not improve after several days of treatment. ? Your symptoms get worse. ? You have difficulty moving the injured area. Get help right away if: ? You have severe pain. ? You have numbness in a hand or foot. ? Your hand or foot turns pale or cold. Summary ? A contusion is a deep bruise. ? Contusions are the result of a blunt injury to tissues and muscle fibers under the skin. ? It is treated with rest, ice, compression, and elevation. You may be given ihgn-urc-xaxjmsi medicines for pain. ? Contact a health care provider if your symptoms do not improve, or get worse. ? Get help right away if you have severe pain, have numbness, or the area turns pale or cold. This information is not intended to replace advice given to you by your health care provider. Make sure you discuss any questions you have with your health care provider. Document Revised: 08/08/2022 Document Reviewed: 07/20/2022 [employer] Patient Education ? 2022 [employer] Normal [facility] ED Patient Summaryon 023 ED Patient Summary [address] [address] Patient Discharge Instructions Person Information Name: KATHY BAKER Age: 58 Years Arrival Date: 09/07/2023 16:54:21 Discharge Diagnosis: Knee contusion Primary Care Physician: Raulito Bullock MD Provider Information Primary Provider: Alon High DO Advanced Breeding Manager:Sammy García PA-C The exam and treatment you received in the Emergency Department were for an urgent problem and are not intended as complete care. It is important that you follow up with a doctor, nurse practitioner, or physician?s butcher assistant for ongoing care. If your symptoms become worse or you do not improve as expected and you are unable to reach your usual health care provider, you should return to the Emergency Department. We are available 24 hours a day. KATHY BAKER has been given the following list of patient education materials, prescriptions and follow-up instructions: Follow-up Instructions: With: Address: When: Rauliot Bullock [address] [place] [address] Business (1) In 3 days 09/10/2023 In the event that this physician does not participate in your insurance network, please consult with your insurance company to find a nearby participating provider. Patient Education Materials: Contusion A MESSAGE TO ALL PATIENTS REGARDING OPIOIDS PRESCRIPTION OPIOIDS: WHAT YOU NEED TO KNOW Prescription opioids can be used to help relieve djcgzrcc-hx-rpyzen pain and are often prescribed following a surgery or injury, or for certain health conditions. These medications can be an important part of the treatment but also come with serious risks. It is important to work with your healthcare provider to make sure you are getting the safest, most effective care. WHAT ARE THE RISKS AND SIDE EFFECTS OF OPIOID USE? Prescription opioids carry serious risks of addiction and overdose, especially with prolonged use. An opioid overdose, often marked by slowed breathing, can cause sudden . The use of prescription opioids can have a number of side effects as well, even when taken as directed: ? Tolerance?meaning you might need to take more of the medication for the same pain relief ? Physical dependence?meaning you have symptoms of withdrawal when a medication is stopped ? Increased sensitivity to pain ? Constipation ? Nausea, vomiting, and dry mouth ? Sleepiness and dizziness ? Confusion ? Depression ? Low levels of testosterone that can result in lower sex drive, energy, and strength ? Itching and sweating RISKS ARE GREATER WITH: ? History of drug misuse, substance use disorder, or overdose ? Mental health conditions (such as depression or anxiety) ? Sleep apnea ? Older age (65 years and older) ? Avoid alcohol while taking prescription opioids. Also, unless specifically advised by your health care provider, medications to avoid include: ? Benzodiazepines (such as Xanax or Valium) ? Muscle relaxants (such as Soma or Flexeril) ? Hypnotics (such as Ambien or Lunesta) ? Other prescription opioids KNOW YOUR OPTIONS Talk to your health care provider about ways to manage your pain that don?t involve prescription opioids. Some of these options may actually work better and have fewer risks and side effects. Options may include: ? Pain relievers such as acetaminophen, ibuprofen, and naproxen ? Some medication that are also used for depression or seizures ? Physical therapy and exercise ? Cognitive behavioral therapy, a psychological, goal-directed approach, in which patients learn how to modify physical, behavioral, and emotional triggers of pain and stress. IF YOU ARE PRESCRIBED OPIOIDS FOR PAIN: ? Never take opioids in greater amounts or more often than prescribed. ? Follow up with your primary health care provider. o Work together to create a plan on how to manage your pain. o Talk about ways to help manage your pain that don?t involve prescription opioids. o Talk about any and all concerns and side effects. ? Help prevent misuse and abuse o Never sell or share prescription opioids. o Never use another person?s prescription opioids. ? Store prescription opioids in a secure place and out of reach of others (this may include visitors, children, friends, and family). ? Safely dispose of unused prescription opioids: Find your community drug take-back program or your pharmacy mail-back program, or flush them down the toilet, following guidance from the Food and Drug Administration (www.fda.gov/Drugs/R esourcesForYou). ? Visit www.cdc.gov/drugover dose to learn about the risks of opioids abuse and overdose. ? If you believe you may be struggling with addiction, tell your health resident care director and ask for guidance or call [facility]?S National Helpline at 6-522-240-Novint. d Source: [employer] Department of [employer] (more content not included)... [facility] Prescriptions/Work Noteson 1 11-08-2022 Prescriptions/Work Notes [id number] 3#1.00TIFF [facility] XR Knee Complete 4+ Views Nba gallegos 09-07-2023 XR Knee Complete 4+ Views Right Exam Date/Time: 09/07/2023 17:57 EST Reason for Exam: Fall Report IMPRESSION: No acute osseous findings. EXAMINATION/TECHNIQU E: XR Knee Complete 4+ Views Right HISTORY: Recent fall. Persistent knee pain. COMPARISON: 03/07/2019. RESULT: No evidence for acute fracture. No dislocation. No distinct joint effusion within limits of positioning on the lateral view. Tricompartmental osteoarthritis, with severe medial compartment narrowing, similar to prior. No other significant abnormality. Ordering Provider: Kelvin Ahn FINAL REPORT Dictated: 09/07/2023 6:06 pm Robby Harris MD Signed (Electronic Signature): 09/07/2023 6:06 pm Signed by: Robby Harris MD Transcribed by: GEORGES Technologist: MARCI Technical Comments Radiation Dose: Ka,r in mGy = na DAP = na Normal [facility] U24 Calciumon 07-18-2023 Calcium (24H U) [Mass/Time] 108 mg/24hr Invalid Interpretation Code [id number] [facility] Comment on above: Result Comment: Perf ormed at: [facility] [id number] PhD Tamika Mckeon Performed By: #### 1 [id number] ####[facility] [address] [place] [address] Calcium (24H U) [Mass/Vol] 12.7 mg/dL Invalid Interpretation Code Not Estab. [facility] Comment on above: Performed By: #### 1 [id number], 2663383, 4532906, 6984818, 25970648, 543791022, 1383636, 0670572, 2489244, 41316199 ####[facility] [address] [place] [address] U24 Citrateon 07-18-2023 Citrate (24H U) [Mass/Time] 652 mg/24hr Invalid Interpretation Code 320-1240 [facility] Comment on above: Result Comment: Perf ormed at: [facility] [id number] MD Candelario Alvarez Performed By: #### 1 7332398, 9534919, 5650142, 5584827, 01879776, 398788129, 6180281, 5668160, 4525430, 49471705 ####[facility] [address] [place] [address] Citrate (24H U) [Mass/Vol] 767 mg/L Invalid Interpretation Code Undefined [facility] Comment on above: Result Comment: This test was developed and its performance characteristics determined [facility] It has not been cleared or approved by the Food and Drug Administration. Performed By: #### 1 5746977, 0533233, 7325231, 1650478, 56569113, 687278248, 3369928, 5908671, 1436273, 33980680 ####[facility] [address] [place] [address] U24 Magnesiumon 07-18-2023 Magnesium (24H U) [Mass/Time] 91.8 mg/24hr Invalid Interpretation Code 12.0-293.0 [facility] Comment on above: Result Comment: Perf ormed at: [facility] [id number] [place], [place] [id number] PhD Tamika Mckeon Performed By: #### 1 7756915, 3064472, 5239055, 2981526, 64412795, 837462911, 0554722, 1366424, 0399732, 24989546 ####[facility] [address] [place] [address] Magnesium (U) [Mass/Vol] 10.8 mg/dL Invalid Interpretation Code Not Estab. [facility] Comment on above: Performed By: #### 1 9991132, 1420277, 3280487, 3461090, 06976768, 541886981, 6506101, 9918574, 8836223, 59016384 ####[facility] [address] [place] [address] U24 Oxalateon 07-18-2023 Oxalate (24H U) [Mass/Time] 24 mg/24hr Invalid Interpretation Code 431 [facility] Comment on above: Result Comment: Perf ormed at: [facility] [address] [place], [place] [id number] MD Candelario Alvarez Performed By: #### 1 0084014, 3758581, 7326895, 8101193, 58737563, 041611647, 1122137, 2461604, 8413607, 34500577 ####[facility] [address] [place] [address] Oxalate (U) [Mass/Vol] 28 mg/L Invalid Interpretation Code Undefined [facility] Comment on above: Performed By: #### 1 6838178, 5957414, 4801701, 7120872, 15138950, 736430191, 3676111, 4763238, 8583378, 54211554 ####[facility] [address] [place] [address] U24 Phosphoruson 07-18-2023 Phosphate (24H U) [Mass/Time] 772 mg/24hr Invalid Interpretation Code 261-1078 [facility] Comment on above: Result Comment: Perf ormed at: [facility] [id number] PhD Tamika Mckeon Performed By: #### 1 9966871, 1690392, 2061698, 3938035, 54559480, 677506807, 0232176, 0517516, 6650967, 57513929 ####[facility] [address] [place] [address] Phosphate (U) [Mass/Vol] 90.8 mg/dL Invalid Interpretation Code Not Estab. [facility] Comment on above: Performed By: #### 1 9296243, 7106902, 6866288, 4164791, 93237974, 104220899, 6711361, 3684732, 2368196, 00118334 ####[facility] [address] [place] [address] U24 Uric Acidon 07-18-2023 Urate (24H U) [Mass/Time] 687.7 mg/24hr Invalid Interpretation Code 173.7-902.1 [facility] Comment on above: Result Comment: Perf ormed at: [address] [id number] PhD Tamika Mckeon Performed By: #### 1 1658044, 5428466, 8019797, 9729469, 25234355, 096016389, 4674514, 0634068, 9214127, 18654597 ####[facility] [address] [place] [address] Urate (U) [Mass/Vol] 80.9 mg/dL Invalid Interpretation Code Not Estab. [facility] Comment on above: Performed By: #### 1 2362711, 3481164, 2685592, 3851121, 55679514, 147097079, 8537315, 0237417, 0212915, 69037692 ####[facility] [address] [place] [address] Urine Vol/Per Ref Labon Hrs Cassi Ref Lab 24 hour(s) Invalid Interpretation Code [facility] Comment on above: Order Comment: Order added by Discern Expert Performed By: #### 1 8417221, 8682407, 3462211, 7689576, 44790981, 193058717, 0544993, 8189985, 6227480, 31163711 ####[facility] [address] [place] [address] PTH Intacton 07-12-2023 Parathyrin.intact [Mass/Vol] 64 pg/mL Invalid Interpretation Code [facility] Comment on above: Result Comment: Perf ormed at: [facility] [address] [id number] PhD Tamika Mckeon Performed By: #### 1 [id number] ####[facility] [address] [place] [address] Physician Orderon 07-12-2023 Physician Order [id number] #1.00TIFF Normal [facility] U24 Creatinineon 07-12-2023 Creatinine (24H U) [Moles/Time] 1678.8 mg/24hr Normal 1000.0-2000.0 [facility] Comment on above: Performed By: #### 1 6183498, 8553735, 9458099, 3425630, 71748917, 162794249, 3971804, 3038919, 1944187, 40724365 ####[facility] [address] [place] [address] Creatine (U) [Moles/Vol] 197.5 mg/dL Normal >=10.0 [facility] Comment on above: Performed By: #### 1 5820475, 7273348, 9849679, 0834109, 71629395, 619873431, 0533064, 7375135, 8561256, 60389888 ####[facility] [address] [place] [address] U24 Sodiumon 07-12-2023 Sodium (24H U) [Mass/Vol] 144 mmol/24hr Normal 40-220 [facility] Comment on above: Performed By: #### 1 5584635, 2327000, 6909042, 4832007, 12558907, 353478465, 9102845, 3151722, 6055845, 73099049 ####[facility] [address] [place] [address] Sodium (U) [Moles/Vol] 170 mmol/L Normal >=10 [facility] Comment on above: Performed By: #### 1 8830213, 7472231, 9991880, 1461589, 56600884, 378720251, 2226664, 1594550, 9947370, 30632465 ####[address] [place] [address] U24 Total Volon 07-12-2023 Hrs Cassi 24 hour(s) Invalid Interpretation Code [facility] Comment on above: Order Comment: Order added by Discern Expert Performed By: #### 1 7184239, 4741978, 2000174, 0988078, 97349313, 506398905, 0734970, 4411543, 3799659, 55291113 ####[facility] [address] [place] [address] Specimen volume Unsp time (U) 850 mL Invalid Interpretation Code [facility] Comment on above: Order Comment: Order added by Discern Expert Performed By: #### 1 7581972, 2494198, 4834357, 1837486, 74165083, 910256590, 7588143, 3857793, 8787607, 43987066 ####[facility] [address] [place] [address] Urine Vol/Per Ref Labon 10-0 5-2023 Specimen volume Unsp time (U) 850 mL Invalid Interpretation Code [facility] Comment on above: Order Comment: Order added by Discern Expert Performed By: #### 1 4886714, 5702433, 9315810, 4701495, 50441830, 975308745, 9493197, 2584058, 4853882, 30717438 ####[facility] [address] [place] [address] BUNon 07-11-2023 Urea nitrogen [Mass/Vol] 19 mg/dL Normal 5-21 [facility] Comment on above: Performed By: #### 1 2595137, 8101493, 3885950, 1323027, 1115372, 7829635 ####[facility] [address] [place] [address] CHEMISTRYOrdered By: SYSTEM SYSTEM on 07-11-2023 Anion gap [Moles/Vol] 13 mmol/L Normal 6 - 16 mEq/L F C Remisol Calcium [Mass/Vol] 9.2 mg/dL Normal 8.9 - 11. 1 mg/dL FT Remisol Chloride [Moles/Vol] 104 mmol/L Normal 101 - 1 11 mmol/L FT [facility] CO2 [Moles/Vol] 30 mmol/L Normal 21 - 31 mmol/L FT Remisol Creatinine [Mass/Vol] 0.9 mg/dL Normal 0.5 - 1.3 mg/dL FT Remisol GFR/1.73 sq M.predicted among non-blacks MDRD (S/P/Bld) [Vol rate/Area] 75 mL/min/1.73 m2 Normal >=59mL/min/1. 73 m2 [facility] [place] [facility] Comment on above: Interpretive Data: C hronic kidney disease could be indicated at eGFR's of less than 60 mL/min/1.73m2. Kidney failure is indicated at less than 15 mL/min/1.73m2. Potassium [Moles/Vol] 4.5 mmol/L Normal 3.5 - 5.3 mmol/L FT Remisol Sodium [Moles/Vol] 142 mmol/L Normal 135 - 145 mmol/L FT Remisol Urate [Mass/Vol] 6.1 mg/dL Normal 2.2 - 7.4 mg/dL [facility] [place] Remisol Urea nitrogen [Mass/Vol] 19 mg/dL Normal 5 - 21 mg/dL [facility] [place] Remisol Calciumon 07-11-2023 Calcium [Mass/Vol] 9.2 mg/dL Normal 8.9-11.1 [facility] Comment on above: Performed By: #### 1 3279240, 6596023, 7042409, 9136420, 0497089, 5570914 ####[facility] [address] [place] [address] Creatinineon 07-11-2023 Creatinine [Mass/Vol] 0.9 mg/dL Normal 0.5-1.3 [facility] Comment on above: Performed By: #### 1 9256181, 9737265, 3245673, 4866512, 9181949, 0784268 ####[facility] [address] [place] [address] Lyteson 07-11-2023 Anion gap [Moles/Vol] 13 mmol/L Normal 6-16 [facility] Comment on above: Performed By: #### 1 0310955, 9479815, 5376725, 9743392, 3591263, 5144575 ####[facility] [address] [place] [address] Chloride [Moles/Vol] 104 mmol/L Normal 101-111 [facility] Comment on above: Performed By: #### 1 4255419, 2963654, 5930065, 8182834, 1643625, 7573559 ####[facility] [address] [facility] [address] CO2 [Moles/Vol] 30 mmol/L Normal 21-31 [facility] Comment on above: Performed By: #### 1 9766016, 2531017, 7915811, 0287522, 8762754, 5592465 ####[facility] [address] [place] [address] Potassium [Moles/Vol] 4.5 mmol/L Normal 3.5-5.3 [facility] Comment on above: Performed By: #### 1 8124268, 2642865, 8829441, 3223147, 6143857, 6992672 ####[facility] [address] [place] [address] Sodium [Moles/Vol] 142 mmol/L Normal 135-145 [facility] Comment on above: Performed By: #### 1 9927865, 1925990, 0657988, 1151634, 5547216, 7998139 ####[facility] [address] [place] [address] Physician Orderon 07-11-2023 Physician Order [id number]#1.00CD:127 Normal [facility] Uric Acidon 07-11-2023 Urate [Mass/Vol] 6.1 mg/dL Normal 2.2-7.4 [facility] Comment on above: Performed By: #### 1 2654247, 7574330, 5769566, 1158400, 8114104, 5539267 ####[facility] [address] [place] [address] XR Abdomen 1 Viewon 07-11-20 XR Abdomen 1 View Exam Date/Time: 07/11/2023 09:40 EDT Reason for Exam: N20.0 Report IMPRESSION: 7 MM CALCULUS, LOWER POLE LEFT KIDNEY. CLINICAL HISTORY: N20.0 COMPARISON: KUB, July 08, 2022 FINDINGS: Gas and stool in colon. No diffuse small bowel dilatation or mass effect. No calcifications identified projecting over right kidney, or expected course bilateral ureters. 7 mm calculus identified overlying lower pole left kidney. Ordering Provider: Nasir SCHMID FINAL REPORT Dictated: 07/11/2023 4:04 pm Humble Glover MD Signed (Electronic Signature): 07/11/2023 4:04 pm Signed by: Humble Glover MD Transcribed by: GEORGES Technologist: CARLY Technical Comments Radiation Dose: Ka,r in mGy = na DAP = na Normal [facility] eGFRon 07-11-2023 GFR/1.73 sq M.predicted among non-blacks MDRD (S/P/Bld) [Vol rate/Area] 75 mL/min/1.73 m2 Normal >=59 [facility] Comment on above: Order Comment: Order added by Discern Expert. Result Comment: Weed Inspector deanna kidney disease could be indicated at eGFR's of less than 60 mL/min/1.73m2. Kidney failure is indicated at less than 15 mL/min/1.73m2. Performed By: #### 1 8652154, 5493661, 8128251, 0769034, 6842254, 9352093 ####[facility] [address] [place] [address] Provider Letteron 06-28-2023 Provider Letter June 28, 2023 K[address] B[address]ER [address] [place] [id number] : 1965 Dear Kathy , We have been trying to reach you with no success. You have an appointment with Dr. Nasir Schmid on 07/09/2023 which will need to be rescheduled since he will be out of the office that day. Please contact the office at the number listed below to get this appointment rescheduled at your earliest convenience. Thank you for your prompt attention to this matter. Sincerely, [facility] [address], [place] [address] [facility] Coding Summary.on 01-20-2023 Coding Summary. CD:[id number] Ww+PGhlYWQ+AO3PYGUpP 99fnLKpeX5fZ5NQJCoXH ywgQVBQTElOSyIgbmFtZ R4vrUYqHBDu IC8+US0sBRLnScqpvPZg a0J8vPA9T96mrz0uRHco zIQ3YSLcAcJuklcik3sx qQp7PQzvAsvmDoPh GTAesX55DCZ5mT98Wg43 jNJnlUEkd3wliCs8KgZv EERsNUD6lFlzPTjwq0Bh UZEjZ51flYDpb2B2 IGNvbGxhcHNlOyBlbXB0 nL8kHLnyhzlfs5rntvzh Ngh3am46eCTjr3T7fBK6 I4LkbyZ1YTPoiEOa HdumjQJLhT1udqnsr2dk tszePkEaMEIlAHi8RSl4 KMVaiNgaRyVsAX30SBJ2 CKQbleNiZ3JsXWZm nQosQpU8c2R9Br7RA8TL AbdeZ7ELZAATOGeqcSE+ CL04hy85K6AzPabnIrf9 KXRqXTP3wZY9iW9o QTZeDCwqb3E5oYL8C4Eg brEfwe5yn1lpTRZrRQfa F02rfLLmu1W9FFFrnAN2 NMAotDppMtRadS20 Oyc+JEJkqJwiw0SwYcvd b6ble8cfrGe6GvtuPDCr zvRbiNluLPI2c0WbRp8p YNRbkDK7sZZ8rQ3m BjLuSfX2SGutD961YxMe tSNcFkgoQ32eH1CejJP+ TSBdWvd8QZRrqBhyUE4c H9UuTOJufcynpVJk zZclVL3bUGGgibzkRQTt nV6gHJIoG7k2LwRvRtF8 EOboK0QpZPYxojjxFo60 wJ9eDlPnYrY7NGvn V5LkknS2NZOtxHNwAPdq RYS8K57qi6S9PTMnZTPf OGY3dBA4nD6mqFedvcji bGVmdDsgdmVydGlj OTriDCyxG764XCAkaLqg PkNvZGluZyBEYXRlOiAg MDQvMTUvMjAyMzwvdGQ+ PFSqIVZ9dBhlXEJv kJSsGAewHe6jsBddiKer GF3xQUSabdnaNSMywD5j NWDxfZIysJqeSY4xOFLa lffkj886YjMwIKF6 GOYmlLUqD5IqfH1aOiZp BJMqHVVlM5FvoNJkZKzh Q524ZVveYfL9VCVisrFm T7CpOTYviNbbCfY7 l0K0Ds4Fk9LulttxX5Ce aXFlHrHlOjwhEAn3H9Cj PjwvdHI+YY05WKUtWR90 GRt6HEL8bGosSGkg FIVpO2JnqS8dYfNnMAPo ZGRkOyc+PHRhYmxlIHdp ZHRoPScxMDAlJyBzdHls EX0fGs8rLJCxUNJa rFaseOIpZkYlk2fmFUJh VPkhNZ8voFsrI1ModWM2 IBWbp4u2Xj25T48zZ2Ex dXA+JGCwtKB1aRI9 hX9lQaNbYeN7BLxiN662 QrFnqFLjKdmqy7xzn3ho xSz8QaB2SWBzcpSvaKis MNE8c6LbHr56Z91n IHdpZHRoPSIxNSUiIHZh rEstep2dxF8hHa0+PGNv dXC8iQR2uG1cFbByIsH6 MLjbQ350OuIveXNk Oeqje4vmt8pyoCm6XuOb RCTbchUpnPihSGA9q6Ie Zl84P7KkgJdgt1GdLiz1 wv36wFYgk1E2pFI7 O1MxAIMmxcdcjVSrhQha TO3uZUFxxtkaCWLloC6o BYXzC2r3IvPpIhK5MHfr P2VumgB1AUIybSRn EQNwoQOIaR7ezqlcb8mh ibosEsBlORIbXXm8AJf3 SUOilBycZbUjHLI1CiY0 TOP8nFEfhR4tyGtw mkbirC9gTgh+OYC6zBYg zEFRYZ2gIthjfAK+PHRk EAL8zVhsNVqcNBPdpS7r EQHzK7k3PyTbVaF4 QHwxJ4JuzkE8KWRsvRLi KPBzrVWNwC5eavjkh9zx sxucBjRoTASeFYu9ELc8 LWFsaWduOiBsZWZ0 GaT3FPK3pAHkaJ2emBgp dmhviO2sWlh+QmlydGgg AZL7WJx1G7JlLsp5GLBb iEehAN7qzYMsOQyo Ro6yeXnqcPciEF4cGNPj jgxca798TuOpj0omNABy gCPuMWqvPCK4Q84nv5C4 LDSvYNIeTUF8wBS3 hI3hqRfhjwceuSMwmDsl blIdlVetEHyqAIuxE631 OTUxtTlsXkXzXWs2G4Ua Tcn5YWMqtTlbJP7y vFKdNDvvJx7uoEragUqf GU2qITXklffbs633YlOa j5nsRCAcpKPfBItzCTD8 J61wl2X8ZZMmZCNv KNE6fHG5tO6gwTgqqgcb bGVmdDsgdmVydGljYWwt HWfyM186FXCbjJcuKkDp cIy6W9KpOam5FXQf zTwlRY1ebNTvQSnmGz3u uYdqpRijOH6xRSFzsyyq p775EcJfd1uwOGQvsSPi GGinJQH4P44jl6R0 JTBfDZYzSWB3pLV1iC0d bGlnbjogbGVmdDsgdmVy tNauMDxoRThtQ654ZXLc cDsnPlBhdGllbnQg AVxgHYt4T8DiDdjynUC+ XT00KEGyRN08xVAtlDYg s2hzlSw5EhOyWSBgESD9 bWxlOGvcz0GvWAVs Q05arPWnv0N4QAVevFia uXStAnEbpMW7dK1jOMtc jcuyd8ztpdkcImyjf7tn hk79fN26W83gUKzf ZHRoPSIzMCUiIHZhbGln aw7riJ1hLi9+PGNvbCB3 jUU6tZ3jKETlOxY8MVuq Z017TgTbyHCaLsmw o0xay0jmzNk0BxG5YBTs ulRasIhuKLH5f1XjDq15 F87hFXiaXQTjKCIhMOSb BBOgrDfxgz1irC0o Ii8+JVVgsLR6aWG2aB4k QgTzHuO1ODzdL132YnAp oLPlAizpN09uL3GknZM+ SEKmBte1BVMrdPqc JS7doZMgCClqOl2rNUH4 WtLhUgFaJWucF5SsYCTw cabejewflHD1XBFlCDGw oV42Sc6wsSvnIDSs eGZToC6gqlsna8yapeuc FoUqTYJiHOf1SUb4TTEa hNruYsMiGOF7EmB2XEL1 xPGxaG1ipCxbbdyq qJ2tF2EtEJOphxjeYg49 zX2eUpVaFhF1VQudHuy+ U9OPIyUCUvsuJATUKENS PZNYKA56GT42zERm g3A6rZH5H5NrDDIpabbu xomavYD8HGZmTHDelJ31 fPQgXGniYt8kw6Y4i473 VTJyNAWzrQ01Xl9k iJbrVMOifBPSpE1oplys y6qpvxvgKzLcUATdDAk2 PHi7YETdsYckDdGiCSB7 KxL5SXT4jYCjqX3p zCdmkigfbZ8yLuy+MDcv OQzsXRc2VilpiFL+PHRk COI6sAnjZNlgCVIykV2j QLFyW4n4ItVtXvD1 JEzbY4LjWBKocgfqHw48 fK3sWuJtPxG9WBozT5Nc aeX8NHUbmBSaESkoOOF3 I99gu3E5ZOTiKKBh CQH7fYH7iH1pbQottjaz bGVmdDsgdmVydGljYWwt ATqcE701MQBekPvtDnF0 JEbhHXAdQB55HM60 nEOab5Z8uZE5H0PhBPMn fflsrryzlTX7OUWnEXKg iP26sRAhEVfkGs8fp8H1 m504VUTzMGWqvV49 La7fuQjsGSHefNXDiF5l fjjaq9vrzuzkQsWpKLHs RBb6INo2IGQzcNeuRnEh DMC4AtA5ETB4gIGu qX2kyGdcodcxrM4yHyp+ ExNfNPbrOQ32KK43uWTq k1T1yPU0X1KaEIWjtmpd ooufnZJ8JHPsSUBm pP71wRFlKSlnKd6uq8Q8 y715IMUqJHHsjD80Yy9q mZusJRAooEKEcR9pkenn c5mqiadwMsUfPHFz OCc3IHc8QJQygZupXeEo GJC4ZaY6BFG3fDFdgO8d bOenoywvcS5rWhz+T3V0 gBL0rMCgvVwopZY+ TO15ga07O7PxClblNhh6 FGMuGLU0lOT3bI2bZIGo YHcjk9S6rUD9X4CkhfQc ba3xm9wpOKAeJAlj S43ovAUpc0S0NXLejII0 MNTtcQxrLeLaiD21Fth+ SNTffAhwl8ZjGolhs6xw k9vtiQt4GvJxMTIb inXzfBiiEKP3h2KmPl65 C07lNKpoHPXmGLSeYZJe HDGolWbplt0obF6xNc0+ ECMbkDB4vJV7xE4s LyFjMxM9TBfcO841ClDj nUCiRdjii5lhz6fmvDz6 IjIwJSIgdmFsaWduPSJ0 v4KmMd98B2MwnOvt u7RlOvr1uk05qZVra9Z9 eQX1D2XkIBTgoouztJNz xGjdUI6oOUVjqjxlALAx wV4wPTAzN0h3RbAv LyX3JFksI9XrlmK8DEDe dWQzRRDiiPMWbT2xkvum i2bxvphoWrQaAIGwLLv0 GOy6IGBedSclYdSr RZU6YzC4IKC9uGEbaH4s aPrxoxydfK7pAxs+UGh5 y1ynpOWiDA8kcRR8GP03 FT69yZYas1U9tBJ2 E7LmTXYmxqmmnkjfbXJ8 EIIoEVErgQ38Ej5bmLug Nq7tWNHjWSJ7DGXinRCa Z1EuqI2mSaOkHMIq KFAsJ4ZlyGYbDJqfN785 ZOcpLsW1ICQiviWsS1Ym TZKjxIkwPeN6b6E9Ic3G IV48RW16VH70zEDl m2C3wKL4T1KxRRNltmlf sshvgWX8VFKlFITczG17 Sy4hyOuzMl1wHPPuZYZ6 RCVszYJrH2ScyC1g TjGtEJFsFANdO8HtjSKb IKfnZ358EVaoPnO9QHQn mmUzO9CdFIFjgLszRhV7 a4F0Em2ASt99VI34 QW49pMAcq8J5qSF7U1Lx GKEumktbybtylSO3EBUu WELngX67Jj5hwFvgCs6q GQXvXQK3IFYdlETz Z2ZrgH1sOnPqAWOpGYCk M7HejLDtWDfvF450XJod IaC8HHTitfKnA6UrWJZp cOwwOoN8h4X5Pp7K FYgmvot9W6WqMmlguCZ+ LP57AZFmIA74lIUfaFZi r0vvqTm1SlBkCJWpFKA4 sAjtZFlfs1WbCHUs E71cyYUi (more content not included)... Normal [facility] Mamm Screen w/CAD if perf and 3D Bilon 01-15-2023 MA Mamm Screen w/CAD if perf and 3D [place] Exam Date/Time: 01/12/2023 15:55 EDT Reason for Exam: Z12.31 Report IMPRESSION: BIRADS 1 NEGATIVE, NORMAL INTERVAL FOLLOW-UP.12 MONTH RECALL. CLINICAL HISTORY: Z12.31. COMPARISON: 06/16/2019. COMMENT: Routine views and tomosynthesis views of both breasts were obtained. The breasts are almost entirely fatty. No dominant breast mass nor neoplastic calcifications are noted. There has been no significant change from the previous exam. The examination was reviewed with Computer Aided Detection. Breast Density: No Mammography is very important to your health. The current [employer] and National [employer] guidelines recommends annual mammography beginning at age 40. This facility utilizes a reminder system to ensure all patients receive reminder notifications at the appropriate time based on the recommendations of this exam. Board Certified Radiologists. Accredited by the ACR and FDA. Ordering Provider: REFERRAL, SELF FINAL REPORT Dictated: 01/15/2023 2:56 pm Rodney Daniels, Marvin Sanches Signed (Electronic Signature): 01/15/2023 2:56 pm Signed by: Marvin Stevens M.D. Transcribed by: GEORGES Technologist: LETICIA Assessment: BI-RADS Category 1-Negative Recommendation: Normal interval follow-up Normal [facility] Auto Diffon 01-12-2023 Basophils/100 WBC (Bld) 0.7 % Normal 0.0-2.0 [facility] Comment on above: Order Comment: Order Added by Discern Expert. Performed By: #### 2 [id number], 1064056, 0355686, [id number], [id number] ####[facility] [address] [place] [address] Basophils/Leukocytes Auto (Bld) [Pure # fraction] 0.1 E9/L Normal 0.0-0.2 [facility] Comment on above: Order Comment: Order Added by Discern Expert. Performed By: #### 2 839667, 7121608, 9181690, [id number], [id number] ####[facility] [address] [place] [address] Eosinophils/100 WBC (Bld) 1.2 % Normal 0.0-8.0 [facility] Comment on above: Order Comment: Order Added by Discern Expert. Performed By: #### 2 339982, 6641532, 5900224, [id number], 3304422 ####[facility] [address] [place] [address] Eosinophils/Leukocyte s Auto (Bld) [Pure # fraction] 0.1 E9/L Normal 0.0-0.5 [facility] Comment on above: Order Comment: Order Added by Discern Expert. Performed By: #### 2 299078, 7394934, 8097230, 22610152, 7068230 ####[address] [place] [address] Lymphocytes/100 WBC (Bld) 33.2 % Normal 14.0-50.0 [facility] Comment on above: Order Comment: Order Added by Discern Expert. Performed By: #### 2 666760, 5516054, 1544515, 79353255, 7044720 ####[address] [place] [address] Lymphocytes/Leukocyte s Auto (Bld) [Pure # fraction] 2.8 E9/L Normal 1.0-4.0 [facility] Comment on above: Order Comment: Order Added by Discern Expert. Performed By: #### 2 955821, 5498817, 2599249, [id number], 9380536 ####[address] [address] Monocytes/100 WBC (Bld) 4.7 % Normal 4.0-14.0 [facility] Comment on above: Order Comment: Order Added by Aaliyah Expert. Performed By: #### 2 278681, 8575029, 6350269, [id number], 6026384 ####[address] [address] Monocytes/Leukocytes Auto (Bld) [Pure # fraction] 0.4 E9/L Normal 0.2-1.0 [facility] Comment on above: Order Comment: Order Added by Discern Expert. Performed By: #### 2 007127, 2660084, 3067050, 87749357, 1513769 ####[address] [address] Neutrophils/100 WBC (Bld) 60.2 % Normal 36.0-75.0 [facility] Comment on above: Order Comment: Order Added by Discern Expert. Performed By: #### 2 844373, 2242528, 9255079, [id number], 1215608 ####[address] [place] [address] Neutrophils/Leukocyte s Auto (Bld) [Pure # fraction] 5.1 E9/L Normal 2.0-7.5 [facility] Comment on above: Order Comment: Order Added by Discern Expert. Performed By: #### 2 122021, 8018511, 5985081, 82229656, 1013857 ####[address] [address] CBC w/ Auto Diffon 3 Erythrocyte distribution width (RBC) [Ratio] 14.1 % Normal 10.9-14.2 [facility] Comment on above: Performed By: #### 2 775343, 9215210, 4811508, 05650365, 3706740 ####[address] [address] Hematocrit (Bld) [Volume fraction] 39.8 % Normal 34.0-46.0 [facility] Comment on above: Performed By: #### 2 595503, 4458827, 8375630, 63008058, 6881782 ####[address] [address] Hemoglobin (Bld) [Mass/Vol] 13.0 g/dL Normal 12.0-16.0 [facility] Comment on above: Performed By: #### 2 707877, 0764225, 9803594, 20233195, 3016487 ####[address] [address] MCH (RBC) [Entitic mass] 29.8 pg Normal 27.0-34.0 [facility] Comment on above: Performed By: #### 2 455940, 3970522, 7854452, 04415183, 2650506 ####[address] [address] MCHC (RBC) [Mass/Vol] 32.7 g/dL Normal 31.4-36.0 [facility] Comment on above: Performed By: #### 2 512116, 6655183, 9782096, 69704304, 5138245 ####[address] [place] [address] MCV (RBC) [Entitic vol] 91.2 fL Normal 80.0-100.0 [facility] Comment on above: Performed By: #### 2 633845, 7648433, 3137379, 80500566, 0136247 ####[address] [place] [address] Platelet mean volume (Bld) [Entitic vol] 8.0 fL Normal 6.4-10.8 [facility] Comment on above: Performed By: #### 2 556153, 0699166, 2627035, 94880901, 0711421 ####[address] [address] Platelets (Bld) [#/Vol] 246.0 E9/L Normal 150.0-500.0 [facility] Comment on above: Performed By: #### 2 860191, 8046265, 4263441, 90197282, 2018574 ####[address] [address] RBC (Bld) [#/Vol] 4.4 E12/L Normal 4.3-5.9 [facility] Comment on above: Performed By: #### 2 133445, 4787036, 1596044, 01261111, 6812311 ####[address] [place] [address] WBC corrected for nucl RBC Auto (Bld) [#/Vol] 8.5 E9/L Normal 4.0-11.0 [facility] Comment on above: Performed By: #### 2 287605, 8869568, 6464477, 31649648, 9729647 ####[address] [address] CHEMISTRYOrdered By: SYSTEM SYSTEM on 01-12-2023 Albumin [Mass/Vol] 3.9 g/dL Normal 3.3 - 5.0 gm/dL [facility] Albumin/Globulin [Mass ratio] 1.1 {ratio} Normal 1.1 - 2.2 [facility] ALP [Catalytic activity/Vol] 124 [iU]/d High 21 - 98 Int._Unit/L [facility] ALT No additional P-5'-P [Catalytic activity/Vol] 33 [iU]/d Normal 6 - 46 Int._Unit/L [facility] Anion gap [Moles/Vol] 10 mmol/L Normal 6 - 16 mEq/L [facility] AST [Catalytic activity/Vol] 20 [iU]/d Normal 5 - 43 Int._Unit/L [facility] Bilirubin [Mass/Vol] 0.3 mg/dL Normal 0.0 - 1 .1 mg/dL [facility] Calcium [Mass/Vol] 9.0 mg/dL Normal 8.9 - 11. 1 mg/dL [facility] Chloride [Moles/Vol] 101 mmol/L Normal 101 - 1 11 mmol/L [facility] Cholesterol [Mass/Vol] 214 mg/dL High 120 - 200 mg/dL [facility] Cholesterol in HDL [Mass/Vol] 53 mg/dL Invalid Interpretation Code [facility] Cholesterol in LDL [Mass/Vol] 151 mg/dL High <=129mg/dL [facility] Cholesterol in VLDL [Mass/Vol] 21 mg/dL Normal 7 - 40 mg/dL [facility] CO2 [Moles/Vol] 30 mmol/L Normal 21 - 31 mmol/L [facility] Creatinine [Mass/Vol] 0.8 mg/dL Normal 0.5 - 1.3 mg/dL [facility] GFR/1.73 sq M.predicted among blacks MDRD (S/P/Bld) [Vol rate/Area] mL/min/1.73 m2 Normal >=59mL/min/1. 73 m2 [facility] Chem S GFR/1.73 sq M.predicted among non-blacks MDRD (S/P/Bld) [Vol rate/Area] mL/min/1.73 m2 Normal >=59mL/min/1. 73 m2 [facility] [place] Chem S Globulin (S) [Mass/Vol] 3.6 g/dL Normal 1.4 - 4.0 gm/dL [facility] Glucose [Mass/Vol] 122 mg/dL Normal 55 - 199 mg/dL [facility] Remisol Potassium [Moles/Vol] 3.7 mmol/L Normal 3.5 - 5.3 mmol/L [facility] Protein [Mass/Vol] 7.5 g/dL Normal 6.0 - 7.8 gm/dL [facility] Remisol Sodium [Moles/Vol] 137 mmol/L Normal 135 - 145 mmol/L [facility] Remisol Triglyceride [Mass/Vol] 106 mg/dL Normal <=149mg/dL [facility] Remisol Urea nitrogen [Mass/Vol] 14 mg/dL Normal 5 - 21 mg/dL [facility] Remisol Urea nitrogen/Creatinine [Mass ratio] 18 mg/mg Normal 10 - 20 [facility] Remisol CMPon 01-12-2023 Albumin [Mass/Vol] 3.9 g/dL Normal 3.3-5.0 [facility] Comment on above: Performed By: #### 2 822415, 5403650, 3971809, 07595729, 6648020 ####[facility] [address] [place] [address] Albumin/Globulin (S) [Mass conc ratio] 1.1 Normal 1.1-2.2 [facility] Comment on above: Performed By: #### 2 846195, 0572923, 4917574, 17902644, 5032211 ####[facility] [address] [place] [address] ALP [Catalytic activity/Vol] 124 Int._Unit/L High 21-98 [facility] Comment on above: Performed By: #### 2 240741, 9320187, 5959465, 45599074, 7863717 ####[facility] [address] [place] [address] ALT No additional P-5'-P [Catalytic activity/Vol] 33 Int._Unit/L Normal 6-46 [facility] Comment on above: Performed By: #### 2 133039, 7229007, 9515735, 73011458, 5075648 ####[facility] [address] [place] [address] Anion gap [Moles/Vol] 10 mmol/L Normal 6-16 [facility] Comment on above: Performed By: #### 2 675438, 3180596, 3884994, 71895709, 2689434 ####[facility] [address] [place] [address] AST [Catalytic activity/Vol] 20 Int._Unit/L Normal 5-43 [facility] Comment on above: Performed By: #### 2 787391, 4095902, 0246444, 20843566, 4313957 ####[facility] [address] [place] [address] Bilirubin [Mass/Vol] 0.3 mg/dL Normal 0.0-1.1 [facility] Comment on above: Performed By: #### 2 000092, 5287591, 0262415, 34411098, 8949506 ####[facility] [address] [place] [address] Calcium [Mass/Vol] 9.0 mg/dL Normal 8.9-11.1 [facility] Comment on above: Performed By: #### 2 913608, 3553138, 2731854, 66785075, 2737117 ####[facility] [address] [place] [address] Chloride [Moles/Vol] 101 mmol/L Normal 101-111 [facility] Comment on above: Performed By: #### 2 731454, 1796181, 0911537, 40339580, 7757003 ####[facility] [address] [place] [address] CO2 [Moles/Vol] 30 mmol/L Normal 21-31 [facility] Comment on above: Performed By: #### 2 983945, 2624260, 5913215, 31548325, 2980286 ####[facility] [address] [place] [address] Creatinine [Mass/Vol] 0.8 mg/dL Normal 0.5-1.3 [facility] Comment on above: Performed By: #### 2 768501, 4959916, 2481195, 13430037, 5796056 ####[facility] [address] [place] [address] Globulin (S) [Mass/Vol] 3.6 g/dL Normal 1.4-4.0 [facility] Comment on above: Performed By: #### 2 116852, 2187397, 8251691, 17831735, 3284732 ####[facility] [address] [place] [address] Glucose [Mass/Vol] 122 mg/dL Normal 55-199 [facility] Comment on above: Result Comment: If t his glucose result represents a fasting glucose, interpretation should refer to the following reference range: 55-99 mg/dL Performed By: #### 2 033613, 7968081, 3144134, 81257789, 1487591 ####[facility] [address] [place] [address] Potassium [Moles/Vol] 3.7 mmol/L Normal 3.5-5.3 [facility] Comment on above: Performed By: #### 2 344292, 2648437, 0749126, 49337024, 8374357 ####[facility] [address] [place] [address] Protein [Mass/Vol] 7.5 g/dL Normal 6.0-7.8 [facility] Comment on above: Performed By: #### 2 465036, 8289480, 8930294, 35504473, 6107981 ####[facility] [address] [place] [address] Sodium [Moles/Vol] 137 mmol/L Normal 135-145 [facility] Comment on above: Performed By: #### 2 778345, 3916948, 2811843, 35964648, 6145735 ####[facility] [address] [place] [address] Urea nitrogen [Mass/Vol] 14 mg/dL Normal 5-21 [facility] Comment on above: Performed By: #### 2 240819, 3475639, 3988547, 63480269, 1353986 ####[facility] [address] [place] [address] Urea nitrogen/Creatinine [Mass ratio] 18 No Units Normal 10-20 [facility] Comment on above: Performed By: #### 2 005705, 4538405, 7703327, 43104585, 3036776 ####[facility] [address] [place] [address] Consent for Treatmenton Consent for Treatment [id number] #1.00CD:127 Normal [facility] HEMATOLOGYOrdered By: SYSTEM SYSTEM on 01-12-2023 Basophils/100 WBC (Bld) 0.7 % Normal 0.0 - 2.0 % [facility] Basophils/Leukocytes Auto (Bld) [Pure # fraction] 0.1 E9/L Normal 0.0 - 0.2 E9/L [facility] Eosinophils/100 WBC (Bld) 1.2 % Normal 0.0 - 8.0 % [facility] Eosinophils/Leukocyte s Auto (Bld) [Pure # fraction] 0.1 E9/L Normal 0.0 - 0.5 E9/L [facility] Lymphocytes/100 WBC (Bld) 33.2 % Normal 14.0 - 50.0 % [facility] Lymphocytes/Leukocyte s Auto (Bld) [Pure # fraction] 2.8 E9/L Normal 1.0 - 4.0 E9/L [facility] Monocytes/100 WBC (Bld) 4.7 % Normal 4.0 - 14.0 % [facility] Monocytes/Leukocytes Auto (Bld) [Pure # fraction] 0.4 E9/L Normal 0.2 - 1.0 E9/L [facility] Neutrophils/100 WBC (Bld) 60.2 % Normal 36.0 - 75.0 % [facility] Neutrophils/Leukocyte s Auto (Bld) [Pure # fraction] 5.1 E9/L Normal 2.0 - 7.5 E9/L [facility] HEMATOLOGYOrdered By: Sanna Pereira on 01-12-2023 Erythrocyte distribution width (RBC) [Ratio] 14.1 % Normal 10.9 - 14.2 % [facility] Hematocrit (Bld) [Volume fraction] 39.8 % Normal 34.0 - 46.0 % [facility] Hemoglobin (Bld) [Mass/Vol] 13.0 g/dL Normal 12.0 - 16.0 gm/dL [facility] MCH (RBC) [Entitic mass] 29.8 pg Normal 27.0 - 34.0 pg [facility] MCHC (RBC) [Mass/Vol] 32.7 g/dL Normal 31.4 - 36.0 gm/dL [facility] MCV (RBC) [Entitic vol] 91.2 fL Normal 80.0 - 100.0 fL [facility] Platelet mean volume (Bld) [Entitic vol] 8.0 fL Normal 6.4 - 10.8 fL [facility] Platelets (Bld) [#/Vol] 246.0 E9/L Normal 150.0 - 500.0 E9/L [facility] RBC (Bld) [#/Vol] 4.4 E12/L Normal 4.3 - 5.9 E12/L [facility] WBC corrected for nucl RBC Auto (Bld) [#/Vol] 8.5 E9/L Normal 4.0 - 11.0 E9/L [facility] Lipid Panelon 01-12-2023 Cholesterol [Mass/Vol] 214 mg/dL High 120-200 [facility] Comment on above: Performed By: #### 2 417905, 6671150, 9450476, 03051710, 6518953 ####[facility] [address] [place] [address] Cholesterol in HDL [Mass/Vol] 53 mg/dL Invalid Interpretation Code [facility] Comment on above: Result Comment: HDL > or equal to 60 mg/dL: Low cardiovascular risk HDL < 40 mg/dL : High cardiovascular risk Performed By: #### 2 823050, 8149121, 9393156, 80988978, 3094332 ####[facility] [address] [place] [address] Cholesterol in LDL [Mass/Vol] 151 mg/dL High <=129 [facility] Comment on above: Performed By: #### 2 356178, 4851213, 5105973, 74398564, 7971170 ####[facility] [address] [place] [address] Cholesterol in VLDL [Mass/Vol] 21 mg/dL Normal 7-40 [facility] Comment on above: Performed By: #### 2 427065, 2582216, 6834011, 54356255, 6723399 ####[facility] [address] [place] [address] Triglyceride [Mass/Vol] 106 mg/dL Normal <=149 [facility] Comment on above: Performed By: #### 2 882887, 5191034, 2423366, 50932199, 5716135 ####[facility] [address] [place] [address] Physician Orderon 01-12-2023 Physician Order [id number] 4#1.00CD:127 Normal [facility] eGFRon 01-12-2023 GFR/1.73 sq M.predicted among blacks MDRD (S/P/Bld) [Vol rate/Area] mL/min/{1.73_m2} Normal >=59 [facility] Comment on above: Order Comment: Order added by Discern Expert. Result Comment: eGFR is race adjusted. AA=. Performed By: #### 2 293203, 0509710, 8433185, 22903191, 5892658 ####[facility] [address] [place] [address] GFR/1.73 sq M.predicted among non-blacks MDRD (S/P/Bld) [Vol rate/Area] mL/min/{1.73_m2} Normal >=59 [facility] Comment on above: Order Comment: Order added by Discern Expert. Result Comment: Weed Inspector deanna kidney disease could be indicated at eGFR's of less than 60 mL/min/1.73m2. Kidney failure is indicated at less than 15 mL/min/1.73m2. Performed By: #### 2 119988, 9857785, 3061442, 38123169, 4647537 ####[facility] [place] [address] CHEMISTRYOrdered By: SYSTEM SYSTEM on 07-13-2022 Albumin [Mass/Vol] 4.2 g/dL Normal 3.3 - 5.0 gm/dL [facility] Albumin/Globulin [Mass ratio] 1.1 {ratio} Normal 1.1 - 2.2 [facility] ALP [Catalytic activity/Vol] 132 [iU]/d High 21 - 98 Int._Unit/L [facility] ALT No additional P-5'-P [Catalytic activity/Vol] 39 [iU]/d Normal 6 - 46 Int._Unit/L [facility] Anion gap [Moles/Vol] 15 mmol/L Normal 6 - 16 mEq/L F [facility] AST [Catalytic activity/Vol] 33 [iU]/d Normal 5 - 43 Int._Unit/L [facility] Bilirubin [Mass/Vol] 0.4 mg/dL Normal 0.0 - 1 .1 mg/dL [facility] Bilirubin.direct [Mass/Vol] 0.1 mg/dL Normal 0.1 - 0.4 mg/dL [facility] Bilirubin.indirect [Mass or moles/Vol] 0.3 mg/dL Normal 0.1 - 0.9 mg/dL [facility] Calcium [Mass/Vol] 9.5 mg/dL Normal 8.9 - 11. 1 mg/dL [facility] Chloride [Moles/Vol] 97 mmol/L Low 101 - 1 11 mmol/L [facility] CO2 [Moles/Vol] 30 mmol/L Normal 21 - 31 mmol/L [facility] Creatinine [Mass/Vol] 1.0 mg/dL Normal 0.5 - 1.3 mg/dL [facility] GFR/1.73 sq M.predicted among blacks MDRD (S/P/Bld) [Vol rate/Area] mL/min/1.73 m2 Normal >=59mL/min/1. 73 m2 [facility] Chem S GFR/1.73 sq M.predicted among non-blacks MDRD (S/P/Bld) [Vol rate/Area] 57 mL/min/1.73 m2 Low >=59mL/min/1. 73 m2 [facility] Chem S Globulin (S) [Mass/Vol] 3.8 g/dL Normal 1.4 - 4.0 gm/dL [facility] Glucose [Mass/Vol] 174 mg/dL Normal 55 - 199 mg/dL [facility] Lipase [Catalytic activity/Vol] 35 U/L Normal 13 - 58 unit/L [facility] Potassium [Moles/Vol] 4.4 mmol/L Normal 3.5 - 5.3 mmol/L [facility] Protein [Mass/Vol] 8.0 g/dL High 6.0 - 7.8 gm/dL [facility] Sodium [Moles/Vol] 138 mmol/L Normal 135 - 145 mmol/L [facility] Urea nitrogen [Mass/Vol] 13 mg/dL Normal 5 - 21 mg/dL [facility] Urea nitrogen/Creatinine [Mass ratio] 13 mg/mg Normal 10 - 20 [facility] HEMATOLOGYOrdered By: SYSTEM SYSTEM on 07-13-2022 Basophils/100 WBC (Bld) 0.5 % Normal 0.0 - 2.0 % [facility] Basophils/Leukocytes Auto (Bld) [Pure # fraction] 0.0 E9/L Normal 0.0 - 0.2 E9/L [facility] Eosinophils/100 WBC (Bld) 1.9 % Normal 0.0 - 8.0 % [facility] Eosinophils/Leukocyte s Auto (Bld) [Pure # fraction] 0.1 E9/L Normal 0.0 - 0.5 E9/L [facility] Lymphocytes/100 WBC (Bld) 31.6 % Normal 14.0 - 50.0 % [facility] Lymphocytes/Leukocyte s Auto (Bld) [Pure # fraction] 1.7 E9/L Normal 1.0 - 4.0 E9/L [facility] Monocytes/100 WBC (Bld) 6.9 % Normal 4.0 - 14.0 % [facility] Monocytes/Leukocytes Auto (Bld) [Pure # fraction] 0.4 E9/L Normal 0.2 - 1.0 E9/L [facility] Neutrophils/100 WBC (Bld) 59.1 % Normal 36.0 - 75.0 % [facility] Neutrophils/Leukocyte s Auto (Bld) [Pure # fraction] 3.2 E9/L Normal 2.0 - 7.5 E9/L [facility] HEMATOLOGYOrdered By: Hermila Myers on 07-13-2022 Erythrocyte distribution width (RBC) [Ratio] 14.6 % High 10.9 - 14.2 % [facility] Hematocrit (Bld) [Volume fraction] 40.2 % Normal 34.0 - 46.0 % [facility] Hemoglobin (Bld) [Mass/Vol] 13.2 g/dL Normal 12.0 - 16.0 gm/dL [facility] MCH (RBC) [Entitic mass] 30.5 pg Normal 27.0 - 34.0 pg [facility] MCHC (RBC) [Mass/Vol] 32.9 g/dL Normal 31.4 - 36.0 gm/dL [facility] MCV (RBC) [Entitic vol] 92.8 fL Normal 80.0 - 100.0 fL [facility] Platelet mean volume (Bld) [Entitic vol] 8.5 fL Normal 6.4 - 10.8 fL [facility] Platelets (Bld) [#/Vol] 247.0 E9/L Normal 150.0 - 500.0 E9/L [facility] RBC (Bld) [#/Vol] 4.3 E12/L Normal 4.3 - 5.9 E12/L [facility] WBC corrected for nucl RBC Auto (Bld) [#/Vol] 5.3 E9/L Normal 4.0 - 11.0 E9/L [facility] URINALYSISOrdered By: Hermila Myers on 07-13-2022 Bacteria LM Ql (Urine sed) 1+ /HPF Invalid Interpretation Code Trace/HPF [facility] Bilirubin Ql (U) Negative (07/13/22 6:40 PM) Normal Negative [facility] Clarity (U) Clear (07/13/22 6:40 PM) Normal Clear [facility] Color (U) Yellow (07/13/22 6:40 PM) Normal Yellow [facility] SS Epithelial cells.squamous LM.HPF (Urine sed) [#/Area] 0-2 /HPF Normal 0-2/HPF [facility] UA Aut o SS Glucose Test strip (U) [Mass/Vol] Negative (07/13/22 6:40 PM) Normal Negative [facility] SS Hemoglobin Ql (U) 3+ *ABN* (07/13/22 6:40 PM) Invalid Interpretation Code Negative [facility] Ketones (U) [Mass/Vol] Negative (07/13/22 6:40 PM) Normal Negative [facility] SS Lena.plasma/Lithiu m.RBC (Bld) [Mass ratio] >30 /HPF Invalid Interpretation Code 0-3/HPF [facility] Nitrite Ql (U) Negative (07/13/22 6:40 PM) Normal Negative [facility] pH (U) 5.5 *NA* (07/13/22 6:40 PM) Invalid Interpretation Code 5.0 - 9.0 [facility] Protein (U) [Mass/Vol] Trace *ABN* (07/13/22 6:40 PM) Invalid Interpretation Code Negative [facility] Specific gravity (U) [Rel density] >=1.030 *NA* (07/13/22 6:40 PM) Invalid Interpretation Code 1.005 - 1.030 [facility] UA Spec Desc Clean Catch (07/13/22 6:40 PM) Normal [facility] Auto SS Urobilinogen Qn (U) 0.8058865 {Lidia'U}/dL Normal 0.0 - 1.0 EU/dL [facility] Auto SS WBC Auto Ql (U) 1+ *ABN* (07/13/22 6:40 PM) Invalid Interpretation Code Negative [facility]A Auto SS WBC LM.HPF (Urine sed) [#/Area] 6-15 /HPF Invalid Interpretation Code 0-5/HPF [facility]A Auto SS Vital Signs Date Time Vital Sign Value Performing Clinician Ozzy daly 10-30-2023 12:27-0500 Blood Pressure Location Chanelle Odnonell [facility] 10-30-2023 12:27-0500 Diastolic blood pressure 83 mm[Hg] Chanelle Orzech [facility] 10-30-2023 12:27-0500 Heart rate 73 /min Chanelle Orzech [facility] 10-30-2023 12:27-0500 Respiratory rate 16 /min Chanelle Orzech [facility] 10-30-2023 12:27-0500 Systolic blood pressure 128 mm[Hg] Chanelle Orzech [facility] 09-07-2023 17:04-0500 Body temperature 97.7 [degF] Alon High [facility] 09-07-2023 17:04-0500 Diastolic blood pressure 83 mm[Hg] Alon High [facility] 09-07-2023 17:04-0500 Heart rate 79 /min Alon High [facility] 09-07-2023 17:04-0500 Respiratory rate 18 /min Alon High [facility] 09-07-2023 17:04-0500 SaO2% (BldA) [Mass fraction] 97 % Alon High [facility] 09-07-2023 17:04-0500 Systolic blood pressure 136 mm[Hg] Alon High [facility] 07-13-2022 20:13-0400 Diastolic blood pressure 120 mm[Hg] Melvin Issa [facility] 07-13-2022 20:13-0400 Heart rate 61 /min Melvin Issa [facility] 07-13-2022 20:13-0400 Mean blood pressure 124 mm[Hg] Melvin Issa [facility] 07-13-2022 20:13-0400 Respiratory rate 16 /min Melvin Issa [facility] 07-13-2022 20:13-0400 SaO2% (BldA) [Mass fraction] 96 % Melvin Issa [facility] 07-13-2022 20:13-0400 Systolic blood pressure 133 mm[Hg] Melvin Issa [facility] 07-13-2022 19:00-0400 Diastolic blood pressure 112 mm[Hg] Melvin Issa [facility] 07-13-2022 19:00-0400 Heart rate 66 /min Melvin Issa [facility] 07-13-2022 19:00-0400 Mean blood pressure 118 mm[Hg] Melvin Issa [facility] 07-13-2022 19:00-0400 Respiratory rate 15 /min Melvin Issa [facility] 07-13-2022 19:00-0400 SaO2% (BldA) [Mass fraction] 97 % Melvin Issa [facility] 07-13-2022 19:00-0400 Systolic blood pressure 130 mm[Hg] Melvin Issa [facility] 07-13-2022 18:42-0400 Diastolic blood pressure 78 mm[Hg] Melvin Issa [facility] 07-13-2022 18:42-0400 Heart rate 63 /min Melvin Issa [facility] 07-13-2022 18:42-0400 Mean blood pressure 90 mm[Hg] Melvin Issa [facility] 07-13-2022 18:42-0400 Respiratory rate 17 /min Melvin Parsons [facility] 07-13-2022 18:42-0400 SaO2% (BldA) [Mass fraction] 94 % Melvin Parsons [facility] 07-13-2022 18:42-0400 Systolic blood pressure 114 mm[Hg] Melvin Parsons [facility] 07-13-2022 18:00-0400 Hourly Rounding Melvin Parsons [facility] 07-13-2022 18:00-0400 Promise to Return Melvin Parsons [facility] 07-13-2022 16:56-0400 Body temperature 98.6 [degF] Melvin Parsons [facility] 07-13-2022 16:56-0400 Heart rate 88 /min Melvin Parsons [facility] 07-10-2022 13:03-0400 Blood Pressure Location Nasir SCHMID [facility] 07-10-2022 13:03-0400 Diastolic blood pressure 82 mm[Hg] Nasir SCHMID [facility] 07-10-2022 13:03-0400 Heart rate 76 /min Nasir SCHMID [facility] 07-10-2022 13:03-0400 Respiratory rate 16 /min Nasir SCHMID [facility] 07-10-2022 13:03-0400 Systolic blood pressure 128 mm[Hg] Nasir SCHMID [facility] Encounters Encounter Date Encounter Type Care Provider Facility Start: 12-06-2023 ambulatory Nasir SCHMID Facili ty:[id number] Start: 11-20-2023 Clinisync Result Encounter Generic External Data Provider [facility] External Department Unsolicited Start: 11-20-2023 Clinisync Result Encounter Generic External Data Provider [facility] External Department Unsolicited Start: 10-30-2023 End: 10-31-2023 ambulatory Chanelle X Steve Facility:[facility] Start: 10-30-2023 End: 10-30-2023 Patient encounter procedure Chanelle X Orarleen [facility] Start: 09-28-2023 End: 09-28-2023 ambulatory RAULITO BULLOCK Not Available Start: 09-07-2023 End: 09-07-2023 Emergency department patient visit Alon High [place] [place] Start: 09-07-2023 End: 09-07-2023 ambulatory JOHN GONGORA Not Available Start: 09-07-2023 End: 09-07-2023 Emergency department patient visit Alon High [facility] Start: 08-29-2023 End: 08-29-2023 ambulatory RAULITO BULLOCK Not Available Start: 07-12-2023 End: 07-13-2023 ambulatory Nasir SCHMID [place] [place] Start: 07-11-2023 End: 07-12-2023 ambulatory Nasir SCHMID [place] [place] Start: 07-11-2023 End: 07-11-2023 Patient encounter procedure Nasir SCHMID [facility] Start: 01-12-2023 End: 01-13-2023 ambulatory Raulito Bullock [place] [place] Start: 01-12-2023 End: 01-12-2023 Patient encounter procedure Raulito Bullock [facility] Start: 11-17-2022 End: 11-17-2022 Patient encounter procedure Raulito Berman Bullock [facility] Start: 10-10-2022 End: 10-10-2022 Patient encounter procedure Raulito Bullock [facility] Start: 07-13-2022 End: 07-13-2022 Emergency department patient visit Melvin Parsons [facility] Start: 07-10-2022 End: 07-10-2022 Patient encounter procedure Nasir SCHMID [facility] Start: 07-08-2022 End: 07-08-2022 Patient encounter procedure Nasir SCHMID [facility] Procedures Date Procedure Procedure Detail Performing Clinician Start: 11-20-2023 ALL CBC WITH AUTO DIFF Generic External Data Provider Start: 01-12-2023 Mammography Generic Pr ovider Start: 06-11-2019 Colonoscopy Generic Pr ovider Start: 02-07-2018 Bursectomy Nasir ANNA Comment on above: REMOVAL FOREIGN BODY RIGHT FOOT, BURSECTOMY RIGHT HEEL Start: 06-07-2017 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 2 Nasir SCHMID Comment on above: Bursectomy right ret rocalcaneal bursa 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 Alfredito SCHMID Plan of Treatment Date Care Activity Detail Author Start: 06-11-2029 Screening for malign ant neoplasm of colon [facility] Start: 05-22-2025 Glaucoma screening Diabetes: R etinopathy Screening [facility] Start: 04-06-2024 Influenza vaccination Influenza Vacc ine (#1) [facility] Comment on above: Postponed from 06/08 (Patient Refused) Start: 01-13-2024 Screening for malign ant neoplasm of breast Mammogram [facility] Start: 01-02-2024 Urine screening for protein Diabetes: Urine Protein Screening [facility] Comment on above: Postponed from 04/23 (Other Medical Reasons) Start: 01-02-2024 End: 01-02-2024 Patient encounter procedure 01/02/2024 10:15 AM EDT Office Visit [facility] [address] [place] [address] Raulito Bullock MD [address] [place] [address] [facility] Start: 12-28-2023 Hemoglobin A1c measurement Diabetes: Hemoglobin A1C [facility] Start: 1996 Screening for malign ant neoplasm of cervix [facility] Start: 1987 Screening for malign ant neoplasm of cervix Pap Smear [facility] Start: 1966 Screening for malign ant neoplasm of colon [facility] Immunizations Immunization Date Immunization Notes Care Provider [facility] 10-20-2022 hepatitis A vaccine, adult dosage Chanelle Orzech [facility] 04-17-2022 zoster vaccine recombinant Chanelle Orzech [facility] 02-06-2022 Hepatitis B vaccine (recombinant), CpG adjuvanted Generic Provider [facility] 02-06-2022 hepatitis B vaccine, adult dosage Chanelle Orzech [facility] 12-30-2021 hepatitis A vaccine, adult dosage Chanelle Orzech [facility] 12-30-2021 Hepatitis B vaccine (recombinant), CpG adjuvanted Generic Provider [facility] 12-30-2021 hepatitis B vaccine, adult dosage Chanelle Orzech [facility] 12-30-2021 Pfizer Orourke Cap SARS-CoV-2 Vaccination Generic Provider [facility] 12-30-2021 SARS-CoV-2 mRNA (bdkughwcugs-kdlx-fasnj se) vaccine Chanelle Carmichaelarleen [facility] 12-30-2021 zoster vaccine recombinant Chanelle Odonnellluna [facility] 02-10-2021 SARS-CoV-2 (COVID-19 ) mRNA BNT-162b2 vax Nasirdaisy SCHMID [facility] 01-19-2021 SARS-CoV-2 (COVID-19 ) mRNA BNT-162z7 vax Chanelle CarmichaelWyldfireluna [facility] 10-08-2020 SARS-CoV-2 (COVID-19 ) mRNA BNT-[id number] vax Nasir SCHMID [facility] 06-20-2020 tetanus toxoid, redu jitendra diphtheria toxoid, and acellular pertussis vaccine, adsorbed Nasir SCHMID [facility] 07-03-2018 influenza virus vaccine, unspecified formulation Chanelle AmolWyldfireluna [facility] 07-03-2018 influenza, high dose seasonal, preservative-free Generic Provider [facility] 07-03-2018 influenza, injectabl e, quadrivalent, preservative free Generic Provider [facility] Payers Date Payer Category Payer Medicaid [employer] [place] [id number] 2022-Present [address] [place] [address] [id number] 2020 Medicaid [id number] 1966 Unknown [id number] 1966 Unknown [id number] 1966 Unknown [id number] 1966 Unknown [id number] 1966 Unknown [id number] 1966 Unknown [id number] 1966 Unknown [id number] 1966 Unknown [id number] Social History Date Type Detail Facility Start: 12-19-2021 End: 03-28-2023 Tobacco smoking status Never smoked tobacco (finding) [facility] Tobacco smoking status Never [facility] Start: 09-28-2023 Sex Assigned At Female [facility] Start: 03-28-2023 Tobacco use and exposure Smokeless tobacco non-user [facility] Start: 09-28-2023 Alcohol intake Current drinke r of alcohol (finding) [facility] Start: 09-28-2023 [facility] 1965 Sex Assigned At Not on file [facility] NEGATED: Highlighted rowStart: NINF History of tobacco use Passive smoker [facility] Medical Equipment Procedure Code Equipment Code Equipment Origin al Text Equipment Identifier Dates ONETOUCH DELICA PLUS 30G MIS Start: 07-10-2022 ONETOUCH DELICA PLUS 30G MIS Start: 07-10-2022 ONETOUCH DELICA PLUS 30G MIS Start: 07-10-2022 ONETOUCH DELICA PLUS 30G MIS Start: 07-10-2022 ONETOUCH DELICA PLUS 30G MIS Start: 07-10-2022 ONETOUCH DELICA PLUS 30G MIS Start: 07-10-2022 ONETOUCH DELICA PLUS 30G MIS Start: 07-10-2022 ONETOUCH DELICA PLUS 30G MIS Start: 07-10-2022 USE 1 STRIP TO C HECK GLUCOSE ONCE DAILY DIRECTED [id number] Start: 03-08-2023 USE 1 ONCE DAILY DIRECTED [id number] Start: 09-19-2023 Functional Status Date Assessment Result Facility 10-30-2023 Functional Status N/A [facility] 09-07-2023 Functional Status N/A [facility] 07-13-2022 Functional Status N/A [facility] 07-10-2022 Functional Status N/A [facility] Clinical Notes 07-10-2022 to 10-30-2023 Note Date & Type Note Facility 10-30-2023 Hospital Discharg e instructions Patient Education 10/30/2023 14:02:45 Dietary Guidelines to Help Prevent Kidney Stones Dietary Guidelines to Help Prevent Kidney Stones Kidney stones are deposits of minerals and salts that form inside your kidneys. Your risk of developing kidney stones may be greater depending on your diet, your lifestyle, the medicines you take, and whether you have certain medical conditions. Most people can lower their risks of developing kidney stones by following these dietary guidelines. Your dietitian may give you more specific instructions depending on your overall health and the type of kidney stones you tend to develop. What are tips for following this plan? Reading food labels Choose foods with no salt added or low-salt labels. Limit your salt (sodium) intake to less than 1,500 mg a day. Choose foods with calcium for each meal and snack. Try to eat about 300 mg of calcium at each meal. Foods that contain 200 500 mg of calcium a serving include: ?8 oz (237 mL) of milk, jibbnqm-lwycpfzsomaf-axlgs milk, and calcium-fortifiedfruit juice. Calcium-fortified means that calcium has been added to these drinks. ?8 oz (237 mL) of kefir, yogurt, and soy yogurt. ?4 oz (114 g) of tofu. ?1 oz (28 g) of cheese. ?1 cup (150 g) of dried figs. ?1 cup (91 g) of cooked broccoli. ?One 3 oz (85 g) can of sardines or mackerel. Most people need 1,000 1,500 mg of calcium a day. Talk to your dietitian about how much calcium is recommended for you. Shopping Buy plenty of fresh fruits and vegetables. Most people do not need to avoid fruits and vegetables, even if these foods contain nutrients that may contribute to kidney stones. When shopping for convenience foods, choose: ?Whole pieces of fruit. ?Pre-made salads with dressing on the side. ?Low-fat fruit and yogurt smoothies. Avoid buying frozen meals or prepared deli foods. These can be high in sodium. Look for foods with live cultures, such as yogurt and kefir. Choose high-fiber grains, such as whole-wheat breads, oat bran, and wheat cereals. Cooking Do not add salt to food when cooking. Place a salt shaker on the table and allow each person to add their own salt to taste. Use vegetable protein, such as beans, textured vegetable protein (TVP), or tofu, instead of meat in pasta, casseroles, and soups. Meal planning Eat less salt, if told by your dietitian. To do this: ?Avoid eating processed or pre-made food. ?Avoid eating fast food. Eat less animal protein, including cheese, meat, poultry, or fish, if told by your dietitian. To do this: ?Limit the number of times you have meat, poultry, fish, or cheese each week. Eat a diet free of meat at least 2 days a week. ?Eat only one serving each day of meat, poultry, fish, or seafood. ?When you prepare animal proteins, cut pieces into small portion sizes. For most meat and fish, one serving is about the size of the palm of your hand. Eat at least five servings of fresh fruits and vegetables each day. To do this: ?Keep fruits and vegetables on hand for snacks. ?Eat one piece of fruit or a handful of berries with breakfast. ?Have a salad and fruit at lunch. ?Have two kinds of vegetables at dinner. You may be told to limit foods that are high in a substance called oxalate. These include: ?Spinach (cooked), rhubarb, beets, sweet potatoes, and Greek chard. ?Peanuts. ?Potato chips, new zealander fries, and baked potatoes with skin on. ?Nuts and nut products. ?Chocolate. If you regularly take a diuretic medicine, make sure to eat at least 1 or 2 servings of fruits or vegetables that are high in potassium each day. These include: ?Avocado. ?Banana. ?[place], prune, carrot, or tomato juice. ?Baked potato. ?Cabbage. ?Beans and split peas. Lifestyle Drink enough fluid to keep your urine pale yellow. This is the most important thing you can do. Spread your fluid intake throughout the day. If you drink alcohol: ?Limit how much you have to: ?0 1 drink a day for women who are not . ?0 2 drinks a day for men. ?Know how much alcohol is in your drink. In the [place] one drink equals one 12 oz bottle of beer (355 mL), one 5 oz glass of wine (148 mL), or one 1 oz glass of hard liquor (44 mL). Lose weight if told by your health care provider. Work with your dietitian to find an eating plan and weight loss strategies that work best for you. General information Talk to your health care provider and dietitian about taking daily supplements. Depending on your health and the cause of your kidney stones, you may be told: ?Do not take high-dose supplements of vitamin C (1,000 mg a day or more). ?To take a calcium supplement. ?To take a daily probiotic supplement. ?To take other supplements such as magnesium, fish oil, or vitamin B6. Take fxvu-wsa-kmmtiis and prescription medicines only as told by your health care provider. These include supplements. What foods should I limit? Limit your intake of the following foods, or eat them as told by your dietitian. Vegetables Spinach. Rhubarb. Beets. Canned vegetables. Pickles. Olives. Baked potatoes with skin. Grains Wheat bran. Baked goods. Salted crackers. Cereals high in sugar. Meats and other proteins Nuts. Nut butters. Large portions of meat, poultry, or fish. Salted, precooked, or cured meats, such as sausages, meat loaves, and hot dogs. Dairy Cheeses. Beverages Regular soft drinks. Regular vegetable juice. Seasonings and condiments Seasoning blends with salt. Salad dressings. Soy sauce. Ketchup. Barbecue sauce. Other foods Canned soups. Canned pasta sauce. Casseroles. Pizza. Lasagna. Frozen meals. Potato chips. Sudanese fries. The items listed above may not be a complete list of foods and beverages you should limit. Contact a dietitian for more information. What foods should I avoid? Talk to your dietitian about specific foods you should avoid based on the type of kidney stones you have and your overall health. Fruits Grapefruit. The item listed above may not be a complete list of foods and beverages you should avoid. Contact a dietitian for more information. Summary Kidney stones are deposits of minerals and salts that form inside your kidneys. You can lower your risk of kidney stones by making changes to your diet. The most important thing you can do is drink enough fluid. Drink enough fluid to keep your urine pale yellow. Talk to your dietitian about how much calcium you should have each day, and eat less salt and animal protein as told by your dietitian. This information is not intended to replace advice given to you by your health care provider. Make sure you discuss any questions you have with your health care provider. Document Revised: 01/04/2023 Document Reviewed: 01/04/2023 [employer] Patient Education 2022 [employer] 10/30/2023 14:02:43 Kidney Stones, Ktbm-ya-Kmmo Kidney Stones Kidney stones are rock-like masses that form inside of the kidneys. Kidneys are organs that make pee (urine). A kidney stone may move into other parts of the urinary tract, including: The tubes that connect the kidneys to the bladder (ureters). The bladder. The tube that carries urine out of the body (urethra). Kidney stones can cause very bad pain and can block the flow of pee. The stone usually leaves your body (passes) through your pee. You may need to have a doctor take out the stone. What are the causes? Kidney stones may be caused by: A condition in which certain glands make too much parathyroid hormone (primary hyperparathyroidism). A buildup of a type of crystals in the bladder made of a chemical called uric acid. The body makes uric acid when you eat certain foods. Narrowing (stricture) of one or both of the ureters. A kidney blockage that you were born with. Past surgery on the kidney or the ureters, such as gastric bypass surgery. What increases the risk? You are more likely to develop this condition if: You have had a kidney stone in the past. You have a family history of kidney stones. You do not drink enough water. You eat a diet that is high in protein, salt (sodium), or sugar. You are overweight or very overweight (obese). What are the signs or symptoms? Symptoms of a kidney stone may include: Pain in the side of the belly, right below the ribs (flank pain). Pain usually spreads (radiates) to the groin. Needing to pee often or right away (urgently). Pain when going pee (urinating). Blood in your pee (hematuria). Feeling like you may vomit (nauseous). Vomiting. Fever and chills. How is this treated? Treatment depends on the size, location, and makeup of the kidney stones. The stones will often pass out of the body through peeing. You may need to: Drink more fluid to help pass the stone. In some cases, you may be given fluids through an IV tube put into one of your veins at the hospital. Take medicine for pain. Make changes in your diet to help keep kidney stones from coming back. Sometimes, medical procedures are needed to remove a kidney stone. This may involve: A procedure to break up kidney stones using a beam of light (laser) or shock waves. Surgery to remove the kidney stones. Follow these instructions at home: Medicines Take dcqp-vir-iuxghkf and prescription medicines only as told by your doctor. Ask your doctor if the medicine prescribed to you requires you to avoid driving or using heavy machinery. Eating and drinking Drink enough fluid to keep your pee pale yellow. You may be told to drink at least 8 10 glasses of water each day. This will help you pass the stone. If told by your doctor, change your diet. This may include: ?Limiting how much salt you eat. ?Eating more fruits and vegetables. ?Limiting how much meat, poultry, fish, and eggs you eat. Follow instructions from your doctor about eating or drinking restrictions. General instructions Collect pee samples as told by your doctor. You may need to collect a pee sample: ?24 hours after a stone comes out. ?8 12 weeks after a stone comes out, and every 6 12 months after that. Strain your pee every time you pee (urinate), for as long as told. Use the strainer that your doctor recommends. Do not throw out the stone. Keep it so that it can be tested by your doctor. Keep all follow-up visits as told by your doctor. This is important. You may need follow-up tests. How is this prevented? To prevent another kidney stone: Drink enough fluid to keep your pee pale yellow. This is the best way to prevent kidney stones. Eat healthy foods. Avoid certain foods as told by your doctor. You may be told to eat less protein. Stay at a healthy weight. Where to find more information National Kidney Foundation (NKF): www.kidney.org U[employer] Care Foundation (UCF): www.urologyhealth.org Contact a doctor if: You have pain that gets worse or does not get better with medicine. Get help right away if: You have a fever or chills. You get very bad pain. You get new pain in your belly (abdomen). You pass out (faint). You cannot pee. Summary Kidney stones are rock-like masses that form inside of the kidneys. Kidney stones can cause very bad pain and can block the flow of pee. The stones will often pass out of the body through peeing. Drink enough fluid to keep your pee pale yellow. This information is not intended to replace advice given to you by your health care provider. Make sure you discuss any questions you have with your health care provider. Document Revised: 05/29/2022 Document Reviewed: 05/29/2022 [employer] Patient Education 2022 [employer] [facility] 09-07-2023 Hospital Discharg e instructions Patient Education 09/07/2023 18:51:21 Contusion Contusion A contusion is a deep bruise. Contusions are the result of a blunt injury to tissues and muscle fibers under the skin. The injury causes bleeding under the skin. The skin overlying the contusion may turn blue, purple, or yellow. Minor injuries will give you a painless contusion, but more severe injuries cause contusions that may stay painful and swollen for a few weeks. Follow these instructions at home: Pay attention to any changes in your symptoms. Let your health care provider know about them. Take these actions to relieve your pain. Managing pain, stiffness, and swelling Use resting, icing, applying pressure (compression), and raising (elevating) the injured area. This is often called the RICE strategy. ?Rest the injured area. Return to your normal activities as told by your health care provider. Ask your health care provider what activities are safe for you. ?If directed, put ice on the injured area: ?Put ice in a plastic bag. ?Place a towel between your skin and the bag. ?Leave the ice on for 20 minutes, 2 3 times per day. ?If directed, apply light compression to the injured area using an elastic bandage. Make sure the bandage is not wrapped too tightly. Remove and reapply the bandage as directed by your health care provider. ?If possible, raise (elevate) the injured area above the level of your heart while you are sitting or lying down. General instructions Take abrb-gib-codcisr and prescription medicines only as told by your health care provider. Keep all follow-up visits as told by your health care provider. This is important. Contact a health care provider if: Your symptoms do not improve after several days of treatment. Your symptoms get worse. You have difficulty moving the injured area. Get help right away if: You have severe pain. You have numbness in a hand or foot. Your hand or foot turns pale or cold. Summary A contusion is a deep bruise. Contusions are the result of a blunt injury to tissues and muscle fibers under the skin. It is treated with rest, ice, compression, and elevation. You may be given myqn-zcv-djzyhzz medicines for pain. Contact a health care provider if your symptoms do not improve, or get worse. Get help right away if you have severe pain, have numbness, or the area turns pale or cold. This information is not intended to replace advice given to you by your health care provider. Make sure you discuss any questions you have with your health care provider. Document Revised: 08/08/2022 Document Reviewed: 07/20/2022 [employer] Patient Education 2022 [employer] Follow Up Care 09/07/2023 16:55:18 With:Raulito Bullock Address: [address] [place] [id number] Business (1) When:09/10/2023 18:21:35 [facility] 09-07-2023 Evaluation + Plan note Extrac rhina from: Title:ED Note Author:Sammy García PA-C te:09/07/23 Knee contusion (S80.00XA: Co ntusion of unspecified knee, initial encounter) Ordered: acetaminophen-hydrocodone, 1 tab(s), Oral, q6hr for pain for 3 day(s), 12 tab(s), Refill(s) 0, [facility] 1986, 170.2, cm, 09/07/23 17:08:00 EST, Height/Length Dosing, 119.1, kg, 09/07/23 17:08:00 EST, Weight Dosing Future Appointments Appointment Date:10/29/2023 11:30:00 AM Scheduled Provider:Nasir SCHMID MD Location:[facility] Appointment Type:URO Office Visit [facility]10-06-2022 Hospital Discharge instructions Patient Education 07/13/2022 20:17:17 Urinary Tract Infection, Adult Urinary Tract Infection, Adult A urinary tract infection (UTI) is an infection of any part of the urinary tract. The urinary tractincludes the kidneys, ureters, bladder, and urethra. These organs make, store, and get rid of urinein the body. Your health care provider may use other names to describe the infection. An upper UTI affects the ureters and kidneys (pyelonephritis). A lower UTI affects the bladder (cystitis) and urethra (urethritis). What are the causes? Most urinary tract infections are caused by bacteria in your genital area, around the entrance to your urinary tract (urethra). These bacteria grow and cause inflammation of your urinary tract. What increases the risk? You are more likely to develop this condition if: You have a urinary catheter that stays in place (indwelling). You are not able to control when you urinate or have a bowel movement (you have incontinence). You are female and you: ?Use a spermicide or diaphragm for control. ?Have low estrogen levels. ?Are . You have certain genes that increase your risk (genetics). You are sexually active. You take antibiotic medicines. You have a condition that causes your flow of urine to slow down, such as: ?An enlarged prostate, if you are male. ?Blockage in your urethra (stricture). ?A kidney stone. ?A nerve condition that affects your bladder control (neurogenic bladder). ?Not getting enough to drink, or not urinating often. You have certain medical conditions, such as: ?Diabetes. ?A weak disease-fighting system (immunesystem). ?Sickle cell disease. ?Gout. ?Spinal cord injury. What are the signs or symptoms? Symptoms of this condition include: Needing to urinate right away (urgently). Frequent urination or passing small amounts of urine frequently. Pain or burning with urination. Blood in the urine. Urine that smells bad or unusual. Trouble urinating. Cloudy urine. Vaginal discharge, if you are female. Pain in the abdomen or the lower back. You may also have: Vomiting or a decreased appetite. Confusion. Irritability or tiredness. A fever. Diarrhea. The first symptom in older adults may be confusion. In some cases, they may not have any symptoms until the infection has worsened. How is this diagnosed? This condition is diagnosed based on your medical history and a physical exam. You may also have other tests, including: Urine tests. Blood tests. Tests for sexually transmitted infections (STIs). If you have had more than one UTI, a cystoscopy or imaging studies may be done to determine the cause of the infections. How is this treated? Treatment for this condition includes: Antibiotic medicine. Elua-rrq-lgogbqe medicines to treat discomfort. Drinking enough water to stay hydrated. If you have frequent infections or have other conditions such as a kidney stone, you may need to see a health care provider who specializes in the urinary tract (urologist). In rare cases, urinary tract infections can cause sepsis. Sepsis is a life- threatening condition that occurs when the body responds to an infection. Sepsis is treated in the hospital with IV antibiotics, fluids, and other medicines. Follow these instructions at home: Medicines Take hgeb-rxu-ipdvjum and prescription medicines only as told by your health care provider. If you were prescribed an antibiotic medicine, take it as told by your health care provider. Do notstop using the antibiotic even if you start to feel better. General instructions Make sure you: ?Empty your bladder often and completely. Do not hold urine for long periods of time. ?Empty your bladder after sex. ?Wipe from front to back after a bowel movement if you are female. Use each tissue one time when you wipe. Drink enough fluid to keep your urine pale yellow. Keep all follow-up visits as told by your health care provider. This is important. Contact a health care provider if: Your symptoms do not get better after 1 2 days. Your symptoms go away and then return. Get help right away if you have: Severe pain in your back or your lower abdomen. A fever. Nausea or vomiting. Summary A urinary tract infection (UTI) is an infection of any part of the urinary tract, which includes the kidneys, ureters, bladder, and urethra. Most urinary tract infections are caused by bacteria in your genital area, around the entrance to your urinary tract (urethra). Treatment for this condition often includes antibiotic medicines. If you were prescribed an antibiotic medicine, take it as told by your health care provider. Do notstop using the antibiotic even if you start to feel better. Keep all follow-up visits as told by your health care provider. This is important. This information is not intended to replace advice given to you by your health care provider. Make sure you discuss any questions you have with your health care provider. Document Released: 07/04/2006 Document Revised: 09/11/2019 Document Reviewed: 04/03/2019 [employer] Patient Education 2020 [employer] 07/13/2022 20:17:17 Abdominal Pain, Adult Abdominal Pain, Adult Pain in the abdomen (abdominal pain) can be caused by many things. Often, abdominal pain is not serious and it gets better with no treatment or by being treated at home. However, sometimes abdominal pain is serious. Your health care provider will ask questions about your medical history and do a physical exam to try to determine the cause of your abdominal pain. Follow these instructions at home: Medicines Take gqjy-hzg-uklezwc and prescription medicines only as told by your health care provider. Do not take a laxative unless told by your health care provider. General instructions Watch your condition for any changes. Drink enough fluid to keep your urine pale yellow. Keep all follow-up visits as told by your health care provider. This is important. Contact a health care provider if: Your abdominal pain changes or gets worse. You are not hungry or you lose weight without trying. You are constipated or have diarrhea for more than 2 3 days. You have pain when you urinate or have a bowel movement. Your abdominal pain wakes you up at night. Your pain gets worse with meals, after eating, or with certain foods. You are vomiting and cannot keep anything down. You have a fever. You have blood in your urine. Get help right away if: Your pain does not go away as soon as your health care provider told you to expect. You cannot stop vomiting. Your pain is only in areas of the abdomen, such as the right side or the left lower portion of the abdomen. Pain on the right side could be caused by appendicitis. You have bloody or black stools, or stools that look like tar. You have severe pain, cramping, or bloating in your abdomen. You have signs of dehydration, such as: ?Dark urine, very little urine, or no urine. ?Cracked lips. ?Dry mouth. ?Sunken eyes. ?Sleepiness. ?Weakness. You have trouble breathing or chest pain. Summary Often, abdominal pain is not serious and it gets better with no treatment or by being treated at home. However, sometimes abdominal pain is serious. Watch your condition for any changes. Take nnfa-kab-xtoeala and prescription medicines only as told by your health care provider. Contact a health care provider if your abdominal pain changes or gets worse. Get help right away if you have severe pain, cramping, or bloating in your abdomen. This information is not intended to replace advice given to you by your health care provider. Make sure you discuss any questions you have with your health care provider. Document Released: 07/04/2006 Document Revised: 02/02/2020 Document Reviewed: 02/02/2020 [employer] Patient Education 2020 [employer] Follow Up Care 07/13/2022 16:52:53 With:Raulito Bullock Address: [address] [place] [id number] Business (1) When:07/16/2022 19:59:08 Comments:Follow-up with your primary care provider in 3 to 5 days. If symptoms worsen, do not improve, or new symptoms arise please report back to emergency department for further evaluation. [facility]10-03-2022 Hospital Discharge instructions Patient Education 07/10/2022 13:14:05 Kidney Stones, Zhcm-gt-Gbrv Kidney Stones Kidney stones are rock-like masses that form inside of the kidneys. Kidneys are organs that make pee (urine). A kidney stone may move into other parts of the urinary tract, including: The tubes that connect the kidneys to the bladder (ureters). The bladder. The tube that carries urine out of the body (urethra). Kidney stones can cause very bad pain and can block the flow of pee. The stone usually leaves your body (passes) through your pee. You may need to have a doctor take out the stone. What are the causes? Kidney stones may be caused by: A condition in which certain glands make too much parathyroid hormone (primary hyperparathyroidism). A buildup of a type of crystals in the bladder made of a chemical called uric acid. The body makes uric acid when you eat certain foods. Narrowing (stricture) of one or both of the ureters. A kidney blockage that you were born with. Past surgery on the kidney or the ureters, such as gastric bypass surgery. What increases the risk? You are more likely to develop this condition if: You have had a kidney stone in the past. You have a family history of kidney stones. You do not drink enough water. You eat a diet that is high in protein, salt (sodium), or sugar. You are overweight or very overweight (obese). What are the signs or symptoms? Symptoms of a kidney stone may include: Pain in the side of the belly, right below the ribs (flank pain). Pain usually spreads (radiates) to the groin. Needing to pee often or right away (urgently). Pain when going pee (urinating). Blood in your pee (hematuria). Feeling like you may vomit (nauseous). Vomiting. Fever and chills. How is this treated? Treatment depends on the size, location, and makeup of the kidney stones. The stones will often pass out of the body through peeing. You may need to: Drink more fluid to help pass the stone. In some cases, you may be given fluids through an IV tube put into one of your veins at the hospital. Take medicine for pain. Make changes in your diet to help keep kidney stones from coming back. Sometimes, medical procedures are needed to remove a kidney stone. This may involve: A procedure to break up kidney stones using a beam of light (laser) or shock waves. Surgery to remove the kidney stones. Follow these instructions at home: Medicines Take hhtu-bhp-qdmycfu and prescription medicines only as told by your doctor. Ask your doctor if the medicine prescribed to you requires you to avoid driving or using heavy machinery. Eating and drinking Drink enough fluid to keep your pee pale yellow. You may be told to drink at least 8 10 glasses of water each day. This will help you pass the stone. If told by your doctor, change your diet. This may include: ?Limiting how much salt you eat. ?Eating more fruits and vegetables. ?Limiting how much meat, poultry, fish, and eggs you eat. Follow instructions from your doctor about eating or drinking restrictions. General instructions Collect pee samples as told by your doctor. You may need to collect a pee sample: ?24 hours after a stone comes out. ?8 12 weeks after a stone comes out, and every 6 12 months after that. Strain your pee every time you pee (urinate), for as long as told. Use the strainer that your doctor recommends. Do not throw out the stone. Keep it so that it can be tested by your doctor. Keep all follow-up visits as told by your doctor. This is important. You may need follow-up tests. How is this prevented? To prevent another kidney stone: Drink enough fluid to keep your pee pale yellow. This is the best way to prevent kidney stones. Eat healthy foods. Avoid certain foods as told by your doctor. You may be told to eat less protein. Stay at a healthy weight. Where to find more information National Kidney Foundation (NKF): www.kidney.org [employer] (UCF): www.urologyhealth.org Contact a doctor if: You have pain that gets worse or does not get better with medicine. Get help right away if: You have a fever or chills. You get very bad pain. You get new pain in your belly (abdomen). You pass out (faint). You cannot pee. Summary Kidney stones are rock-like masses that form inside of the kidneys. Kidney stones can cause very bad pain and can block the flow of pee. The stones will often pass out of the body through peeing. Drink enough fluid to keep your pee pale yellow. This information is not intended to replace advice given to you by your health care provider. Make sure you discuss any questions you have with your health care provider. Document Released: 03/12/2009 Document Revised: 02/10/2020 Document Reviewed: 02/10/2020 [employer] Patient Education 2020 [employer] Follow Up Care 01/31/2022 14:51:55 With:Nasir SCHMID MD, URL Address: [facility] [address], [place] [address]- [phone] When:07/10/2023 Comments:MONTE[facility] evaluation + Plan note Future Appointments Appointment Date:07/10/2022 12:45:00 PM Scheduled Provider:Nasir SCHMID MD Location:[facility] App[facility] Future Appointments Appointment Date:07/09/2023 12:45:00 PM Scheduled Provider:Nasir SCHMID MD Location:[facility] Appointment Type:URO Office Visit [facility] evaluation + Plan note Future Appointments Appointment Date:07/09/2023 12:45:00 PM Scheduled Provider:Nasir SCHMID MD Location:[facility] Appointment Type:URO Office Visit Diagnostic Tests Pending * Urine Culture 07/13/22 [facility] Future Appointments Appointment Date:08/13/2023 11:45:00 AM Scheduled Provider:Nasir SCHMID MD Location:[facility] Appointment Type:URO Office Visit Diagnostic Tests Pending * PTH Intact 07[facility]11/23 [facility] N[facility] No data available for this section [facility] No data available for this section [facility] No data available for this section [facility] Summary Purpose Family History No Family History Records Found Advance Directives No Advanced Directives Records FoundNo Advanced Directives Records Found Additional Source Comments Care Team (unrecognized sect ion and content) [employer] Relationship Specialty Start Date End Date Raulito Bullock MD [address] [place] [address] [facility] 01/06/23 Raulito Bullock MD [address] [place] [address] PCP - General Family Medicine 03/28/23 INFORMATION SOURCE (unrecogn ized section and content) DATE CREATED AUTHOR 09/29/2023 [facility] DATE CREATED AUTHOR AUTHOR'S STEPHEN ATION 11/23/2023 [facility] FOR RECORDS PERTAINING TO PATIENTS WHO ARE OR HAVE BEEN ENROLLED IN A CHEMICAL DEPENDENCY/SUBSTANCEABUSE PROGRAM, SOME INFORMATION MAY BE OMITTED. This clinical summary was aggregated from multiple sources. Caution should be exercised in using it in the provision of clinical care. This summary normalizes information from multiple sources, and as a consequence, information in this document may materially change the coding, format and clinical context of patient data. In addition, data may be omitted in some cases. CLINICAL DECISIONS SHOULD BE BASED ON THE PRIMARY CLINICAL RECORDS. [facility]. provides no warranty or guarantee of the accuracy or completeness of information in this document.
--- NOTE | 2023-12-06 07:45 | XR_ITS ---
The [address] [address] Patient Name: KATHY BAKER MRN: [id number] date: 1965 Sex: F [facility]igned [facility] Accession/Order Number: [id number] Exam Date: 12/06/2023 07:20 Report Date: 12/06/2023 07:45 At the request of: MARITA OQUENDO Procedure: XR abdomen 1V EXAMINATION: XR abdomen 1V HISTORY: preop r COMPARISON: No relevant comparison available. FINDINGS: KIDNEY/URETER - RIGHT: No visible renal or ureteral calcifications. KIDNEY/URETER - LEFT: 6 mm left nephrolith projects over the lower pole PELVIS: No visible ureteral calcifications. Any visible calcifications favor phleboliths. BOWEL: No abnormal dilation or deviation. BONES: Moderate degenerative changes with dextrocurvature OTHER: Negative. No abnormal gaseous collections. XR/XR abdomen 1V IMPRESSION: 6 mm left nephrolith Electronically authenticated by: SILVIO SHOEMAKER Date: 12/06/2023 07:45
[2023-12-06] MEDS: LACTATED RINGER'S SOLUTION 1,000 ML 50 ML IV ×2 (07:57→11:39)
[2023-12-06 08:03] LABS: Glucometer 129 mg/dL (74-106)
[2023-12-06] MEDS: CIPROFLOXACIN IN 5 % DEXTROSE 400 MG/200 ML PIGGYBACK 200 MG IV (09:10)
--- NOTE | 2023-12-06 10:01 | P.URON_ITS ---
Urology Surgery Operative Note Operative Note Procedure Date: 12/06/23 Time Out Performed: yes Pre-op Diagnosis: Urolithiasis Post-op Diagnosis: same as pre-op Procedures performed: 1. Left ESWL. Anesthesia: General-LMA Primary Surgeon: Nasir Scmhid Complications: None Estimated blood loss (mL): 0 Findings: Dense left lower pole stone Specimens: None Indications for Procedures: This lady has an left lower pole stone. It is currently at 7 mm by KUB. She now presents for left ESWL. She has signed an informed consent for this procedure after all risks were explained. Some of these risks include bleeding, perinephric hematoma, infection and anesthesia to name a few. Detailed description of Procedure: The patient was brought to the Operating Room and placed on Siemens electromagnetic lithotripsy treatment table in the supine position. SCDs were placed on their lower extremities and turned on and functioning during the entire case. Timeout was done by all parties in the room. We all agreed upon the patient's identification and the planned procedures for this patient. General Anesthesia was then administered via LMA. Treatment head was then brought to the patient's correct side. While using flourscopy the stone was identified and lined up into the crosshairs. We then began applying shocks at power level 2.0 and increased to a maximum power level of 3.5. Intermittent fluoroscopy revealed that the stone was very slow to fragment. We applied a total of 3000 shocks. We did see fragmentation. There was no dispersion of fragments or pieces. After applying 3000 shocks the procedure was then terminated. He was then transferred to a [facility] bed and wheeled to PACU in stable condition.
[2023-12-06] MEDS: HYDROMORPHONE HCL 0.5 MG/0.5 ML SYRINGE IV (10:10)
--- NOTE | 2023-12-06 10:33 | PC.NURSE ---
IV dc'd intact and warm compresses applied and extremity elevated above heart level
--- NOTE | 2023-12-06 10:36 | PC.NURSE ---
No bruising of left flank noted
--- NOTE | 2023-12-06 10:43 | PC.NURSE ---
IV Intiated by Brian Steiner with 1 attempt IN RIGHT HAND
--- NOTE | 2023-12-06 10:53 | PC.NURSE ---
mEDICATED ORDERED FOR PAIN
--- NOTE | 2023-12-06 10:55 | PC.NURSE ---
Anesthesia aware of IV iniltrate left arm; no orders received
--- NOTE | 2023-12-06 11:08 | PC.NURSE ---
Warm compress reapplied to left forearm infiltrated IV site; area edematous, pink; no loss of sensation in left arm
== END 2023-12-06 13:26 | disposition home or self-care (01) ==
PROVIDERS: PCP Family Medicine; Visit Provider Urology
PROC: (CPT 873; principal; 2023-12-06 08:50)
DX: N20.0 Calculus of kidney (principal); M19.90 Unspecified osteoarthritis, unspecified site; H91.90 Unspecified hearing loss, unspecified ear; Z87.442 Personal history of urinary calculi; E11.9 Type 2 diabetes mellitus without complications; K76.0 Fatty (change of) liver, not elsewhere classified; Z79.85 Long-term (current) use of injectable non-insulin antidiabetic drugs; Z79.84 Long term (current) use of oral hypoglycemic drugs; E66.9 Obesity, unspecified; Z68.39 Body mass index [BMI] 39.0-39.9, adult
CPT/HCPCS: 50590; 36415; 74018; J1094; J1170; J2704